=== PATIENT | female | born 1955 | race Caucasian/White ===

== ENCOUNTER → 2016-06-07 | Outpatient (CLI) | payer OTHER ==
[~2016-06-07] VITALS: Ht 171.4 cm; Wt 72.6 kg
[~2016-06-07] MED LIST: BACT800T5 PO; CHLORHEXIDINE GLUCONATE 2 % 1 PACK (2 CLOTHS) TOPICAL PRN; EXCETAB40 PO; INSULIN HUMAN REGULAR 1,000 UNITS/10 ML VIAL SQ PRN; LACTATED RINGER'S 1000 ML IV PRN; METOPROLOL TARTRATE 25 MG TAB PO PRN; MIDAZOLAM HCL 2 MG/2 ML VIAL ONE; POVIDONE IODINE 5% (ANTISEPSIS KIT) 4 APPLICATIONS EACH NARE PRN; PROPOFOL 200 MG/20 ML AMP IV ONE; SODIUM CHLORID 0.9% 500 ML IV PRN
[2016-06-07 08:19] VITALS: BP 142/97; PULSE 76; RESP 20; TEMP 97.4; O2SAT 99
[2016-06-07 12:10] VITALS: BP 142/88; PULSE 75; RESP 20; TEMP 97.6; O2SAT 100
--- NOTE | 2016-06-07 18:51 | EKG ---
Date Performed: 06/07/2016 Time Performed: 08:16:12 PTAGE: 60 years EKG: Sinus rhythm NORMAL ECG Compared to prior tracing no significant change PREVIOUS TRACING : 09/16/2013 10.58 DOCTOR: Morgan Henley Interpretating Date/Time 06/07/2016 18:49:49
--- NOTE | 2016-06-10 11:24 | MR ---
cc: KEVIN RAMIREZ M.D. DATE 06/07/2016 DATE OF 1955 PROCEDURES PERFORMED 1. Upper GI endoscopy. 2. Colonoscopy. INDICATIONS FOR PROCEDURE Evaluation of reflux, epigastric discomfort. Screening colonoscopy. The patient has a prior history of colorectal polyps as well. Photographs were taken. Polypectomy was performed. Biopsies were obtained on upper endoscopy. MONITORING Monitoring was accomplished with pulse oximeter, EKG, blood pressure monitor. PROCEDURE NOTE After informed consent was obtained, the procedure, risks and benefits were explained including the risks of bleeding, sepsis, perforation, risks of anesthesia, risks of missing lesions. The patient was placed in the left lateral position. The video scope was inserted in the esophagus under direct visualization. The esophagus for the most part was unremarkable except for very minimal esophagitis at the EG junction which was biopsied. The stomach was entered. Gastric mucosa was visualized. In the retroflex view the cardia and fundus were unremarkable. The gastric body was unremarkable. The patient did have mild to moderate erosive gastritis in the antrum. Several punctate erosions were noted. Multiple biopsies were taken to rule out H. pylori. The scope was passed through the pyloric ring into the first, second and third portions of the duodenum. The duodenal mucosa was normal. The scope was then gradually withdrawn and the patient was repositioned. Colonoscopy was then performed. The video pediatric colonoscope was inserted in the rectum, passed to the cecum in the usual fashion with abdominal pressure. The colonic mucosa throughout appeared to be grossly normal. The patient did have mild diverticulosis in the descending and sigmoid colon without inflammatory changes. In the ascending colon, a soft sessile polyp 6-mm was successfully snared off and retrieved. Hemostasis was maintained. Cautery was used. In the rectum the scope was retroflexed. Grade 1 internal hemorrhoids were noted. The patient tolerated the procedure well. No immediate complications were noted. IMPRESSION 1. Mild distal esophagitis at the EG junction. 2. Moderate erosive gastritis in the antrum, biopsied. 3. Diverticular disease in the descending and sigmoid colon. 4. One 6-mm polyp snared and removed from the ascending colon successfully. 5. Small internal hemorrhoids. PLAN 1. Recommend antireflux maneuvers. 2. PPI therapy. 3. Follow up biopsies to rule out H pylori. 4. Recommend repeat colonoscopy in five years. 5. Follow up the histopathology of the polyp removed. 6. Recommend high fiber diet. MD SHAMA Webster/CIPRIANO /11:31 AM /11:14 AM
== END ==
LOC: HEND 07:41
PROVIDERS: ATTEND Internal Medicine Gastroenterology
DX: Z12.11 Encounter for screening for malignant neoplasm of colon (principal); Z86.010 Personal history of colon polyps; K63.5 Polyp of colon; K57.30 Diverticulosis of large intestine without perforation or abscess without bleeding; K64.0 First degree hemorrhoids; K29.60 Other gastritis without bleeding; K21.9 Gastro-esophageal reflux disease without esophagitis; R10.13 Epigastric pain; Z01.810 Encounter for preprocedural cardiovascular examination
CPT/HCPCS: 00810; 43239; 45385; 88305; 88312; 93005; J2250

== ENCOUNTER → 2016-09-05 | Outpatient (CLI) | payer OTHER ==
[~2016-09-05] MED LIST changes: -CHLORHEXIDINE GLUCONATE 2 % 1 PACK (2 CLOTHS) TOPICAL PRN; +EXCETAB42 PO; -INSULIN HUMAN REGULAR 1,000 UNITS/10 ML VIAL SQ PRN; -LACTATED RINGER'S 1000 ML IV PRN; -METOPROLOL TARTRATE 25 MG TAB PO PRN; -MIDAZOLAM HCL 2 MG/2 ML VIAL ONE; -POVIDONE IODINE 5% (ANTISEPSIS KIT) 4 APPLICATIONS EACH NARE PRN; -PROPOFOL 200 MG/20 ML AMP IV ONE; -SODIUM CHLORID 0.9% 500 ML IV PRN
[2016-09-05 18:18] LABS: BACTERIA, URINE RARE /hpf; BLOOD, URINE TRACE (NEG); COMMENT (UR) CULT NOT INDICATED; CULTURE IF INDICATED CULT NOT INDICATED; GLUCOSE,URINE NEG (NEG); KETONE, URINE NEG (NEG); MUCUS URINE FEW /lpf (OCC); NITRITE,URINE NEG (NEG); SQUAMOUS EPITHELIAL CELL URINE <1 /hpf (0-5); TRANSITIONAL EPI CELLS, URINE 1 /hpf; URINE COLOR YELLOW (YELLW/STRAW)
== END ==
LOC: PLAB 14:25
PROVIDERS: ATTEND Urology
DX: N39.0 Urinary tract infection, site not specified (principal)
CPT/HCPCS: 81001

== ENCOUNTER 2016-09-15 18:07 | Emergency (ER) | payer OTHER ==
[~2016-09-15] VITALS: Ht 172.7 cm; Wt 80.0 kg
[~2016-09-15 18:07] MED LIST changes: -EXCETAB42 PO
[2016-09-15 18:16] VITALS: BP 163/84; PULSE 88; RESP 18; TEMP 98.4; O2SAT 97
[2016-09-15] MEDS ORDERED: EXCETAB42 PO (18:22)
[2016-09-15] MEDS ORDERED: LIDOCAINE HCL 1% 50 ML VIAL ONE (18:26)
[2016-09-15] MEDS ORDERED: LIDOCAINE 1%/EPINEPHrine 1:100,000 SOLN 20 ML VIAL INFIL ONE (18:30)
[2016-09-15] MEDS ORDERED: TETANUS/DIPHTHERIA TOXOID ADULT 0.5 ML VIAL IM ONE (18:30)
--- NOTE | 2016-09-15 18:51 | PD ---
HPI Chief Complaint: Laceration/Skin Injury Time Seen by Provider: 18:30 Travel History International Travel<30 days: No Contact w/Intl Traveler<30days: No Traveled to known affect area: No History of Present Illness HPI 61-year-old female presents to the emergency room for evaluation of a laceration to her right second, dorsal MCP joint that occurred just prior to arrival. Patient cut herself on a broken glass while trying to wash it. States she wanted to just glue it at home but she could not get the bleeding to stop. Denies significant pain or paresthesias. Last tetanus was greater than 5 years ago. PFSH Past Medical History Cancer: No Cardiovascular Problems: No Diabetes: No Diminished Hearing: No Endocrine: No Glaucoma: No Genitourinary: No Headaches: Yes Hepatitis: No Hiatal Hernia: No Hypertension: No Immune Disorder: No Musculoskeletal: No Neurologic: No Psychiatric: No Respiratory: No Immunizations Current: Yes Thyroid Disease: No ?: Not Menopausal: Yes Past Surgical History AICD: No Section: Yes Gynecologic Surgery: Yes (HYSTERECTOMY) Hysterectomy: Yes Joint Replacement: No Pacemaker: No Other Surgery: Yes (VEIN LIGATION) Social History Alcohol Use: Yes (OCC) Tobacco Use: No Substance Use: No Allergies-Medications (Allergen,Severity, Reaction): Coded Allergies: Kiwi (Verified Allergy, Severe, ANAPHYLACTIC SHOCK, 09/15/16) Reported Meds & Prescriptions Reported Meds & Active Scripts Active Reported Excedrin Tension Headache Cplt (Acetaminophen/Caffeine) 1 Each Tablet 1 Tab PO PRN Review of Systems Except as stated in HPI: all other systems reviewed are Neg Physical Exam Narrative GENERAL: Well-nourished, well-developed female in no acute distress. Afebrile. Ambulatory.. SKIN: Focused skin assessment warm/dry. There is a 1.5 cm superficial, well approximated laceration over the dorsal right second MCP joint. HEAD: Normocephalic. EYES: No scleral icterus. No injection or drainage. NECK: Supple, trachea midline. No JVD or lymphadenopathy. CARDIOVASCULAR: Regular rate and rhythm without murmurs, gallops, or rubs. RESPIRATORY: Breath sounds equal bilaterally. No accessory muscle use. MUSCULOSKELETAL: No cyanosis, or edema. Less than 2 second capillary refill distally. Full range of motion. Data Data Last Documented VS Vital Signs Date Time Temp Pulse Resp B/P Pulse Ox O2 Delivery O2 Flow Rate FiO2 09/15/16 18:16 98.4 88 18 163/84 97 Orders Lidocai-Epi 1%-1:100,000 Inj (Xylocaine- (09/15/16 18:30) Tetanus/Diphtheria Tox Adult (Tetanus/Di (09/15/16 18:30) Lidocaine 1% Inj (50 Ml) (Xylocaine 1% I (09/15/16 18:26) MDM Medical Decision Making Medical Screen Exam Complete: Yes Emergency Medical Condition: Yes Medical Record Reviewed: Yes Differential Diagnosis Laceration, tendon injury, abrasion Narrative Course 61 year-old female presents to the emergency room for evaluation of a laceration to her right dorsal hand over the 2nd MCP joint. Patient cut herself on glass just prior to arrival. Tetanus was update and wound was thoroughly cleaned. There is a1.5 cm superficial laceration that is well- approximated. Minimal bleeding. It was repaired with sutures, see procedure note for details. Patient discharged with wound care instructions and told to follow up with a PCP or return for worsening symptoms. She understands and agrees to plan. Procedures Procedure Narrative LACERATION LOCATION: Right second, dorsal MCP joint LENGTH: 1.5 cm NUMBER OF STITCHES/JUDAH: 3 simple interrupted REPAIR: The area of the laceration was prepped with Betadine and sterilely draped. The laceration was infiltrated with 1% lidocaine with epinephrine. The wound was copiously irrigated and explored without evidence of foreign body , tendon injury or neurovascular injury. The wound was closed using 5-0 Prolene. This was a single layer repair. A sterile dressing was applied. The patient was advised to keep the dressing clean and dry. Patient tolerated the procedure well. Diagnosis Primary Impression: Laceration of hand Qualified Code: S61.411A - Laceration of right hand without foreign body, initial encounter Referrals: Primary Care Physician Patient Instructions: General Instructions, Laceration (ED) Additional Instructions: Keep clean and dry. Apply triple antibiotic ointment daily. Sutures out in 7- 10 days. Follow-up with a primary care physician. Return to the emergency room for worsening symptoms. Disposition: 01 DISCHARGE HOME Condition: Stable Yovana Carrasquillo Sep 15, 2016 18:51
== END 2016-09-15 19:10 | disposition home or self-care (01) ==
LOC: PHEFT 18:07
DX: S61.411A Laceration without foreign body of right hand, initial encounter (principal); W25.XXXA Contact with sharp glass, initial encounter; Z23 Encounter for immunization
CPT/HCPCS: 12001; 90471; 90714

== ENCOUNTER 2017-02-12 03:35 | Inpatient (IN) | payer OTHER ==
[2017-02-12] VITALS (15 sets, daily range): BP systolic 88–160; BP diastolic 54–94; PULSE 8–112; RESP 12–24; TEMP 96.2–98.6; O2SAT 96–100
[~2017-02-12] VITALS: Ht 172.7 cm; Wt 80.7 kg
[~2017-02-12 03:35] MED LIST changes: -BACT800T5 PO; -EXCETAB40 PO; +EXCETAB42 PO; +IBUP200C PO
[2017-02-12] MEDS ORDERED: PRED5TAB PO (04:00)
[2017-02-12] MEDS ORDERED: ASPI1TAB93 PO (04:00)
[2017-02-12] MEDS ORDERED: LORazepam 1 MG TAB PO ONE (04:15)
[2017-02-12 04:47] LABS: AUTOMATED NEUTROPHIL # 5.3 TH/MM3 (1.8-7.7); BASOPHIL # 0.2 TH/MM3 (0-0.2); BASOPHIL % 2.1 % (0.0-2.0); EOSINOPHIL % 0.3 % (0.0-4.0); HEMATOCRIT 37.5 % (35.0-46.0); HEMOGLOBIN 12.4 GM/DL (11.6-15.3); LYMPH % 18.1 % (9.0-44.0); LYMPHOCYTE # 1.3 TH/MM3 (1.0-4.8); MEAN CELL VOLUME 84.2 FL (80.0-100.0); MEAN CORPUSCULAR HEMOGLOBIN 27.8 PG (27.0-34.0); MEAN PLATELET VOLUME 9.7 FL (7.0-11.0); MONO % 5.4 % (0.0-8.0); MONOCYTE # 0.4 TH/MM3 (0-0.9); NEUT % 74.1 % (16.0-70.0); PLATELET COUNT 204 TH/MM3 (150-450); RED BLOOD COUNT 4.45 MIL/MM3 (4.00-5.30); WHITE BLOOD COUNT 7.2 TH/MM3 (4.0-11.0)
[2017-02-12 04:52] LABS: CHLORIDE 105 MEQ/L (98-107); SODIUM (NA) 140 MEQ/L (136-145)
[2017-02-12 04:55] LABS: CALCIUM 8.6 MG/DL (8.5-10.1)
[2017-02-12 04:56] LABS: ALBUMIN 3.7 GM/DL (3.4-5.0); BICARBONATE 29.1 MEQ/L (21.0-32.0); BLOOD UREA NITROGEN 28 MG/DL (7-18); GLUCOSE,RANDOM 125 MG/DL (74-106); PROTHROMBIN TIME - PATIENT 9.9 SEC (9.8-11.6)
[2017-02-12 04:59] LABS: ALT (GPT) 20 U/L (10-53); AST (GOT) 12 U/L (15-37); GLOMERULAR FILTRATION RATE 73 ML/MIN (>89)
[2017-02-12 05:00] LABS: TOTAL BILIRUBIN ADULT 0.3 MG/DL (0.2-1.0); TOTAL PROTEIN 6.9 GM/DL (6.4-8.2)
[2017-02-12 05:02] LABS: ALKALINE PHOSPHATASE 84 U/L (45-117)
[2017-02-12] MEDS ORDERED: SODIUM CHLOR 0.9% 1000 ML INJ 1,000 ML IV ONE ×3 (05:15→14:00)
--- NOTE | 2017-02-12 05:23 | PD ---
HPI Chief Complaint: GI Complaint Time Seen by Provider: 03:49 Travel History International Travel<30 days: No Contact w/Intl Traveler<30days: No Traveled to known affect area: No History of Present Illness HPI This is a 61-year-old female who presents to the emergency Department with onset of bloody diarrhea that started at 11 PM. She said she woke up in the bed was soaked and bright red blood. Since then she's been on the toilet constantly and all this been coming out is bright red bloody stool and clots. She denies any fevers or chills and denies any abdominal pain. Her symptoms of been constant, moderate severity with no associated pain in her rectum. She says for to days ago she made an oyster corn casserole that she was in the only one that ate it. She had an endoscopy and colonoscopy in February which was normal with Dr. Kamara. She has recently been on prednisone for a shoulder injury, but denies any recent antibiotic use. PFSH Past Medical History Cancer: No Cardiovascular Problems: No Diabetes: No Diminished Hearing: No Endocrine: No Glaucoma: No Genitourinary: No Headaches: Yes Hepatitis: No Hiatal Hernia: No Hypertension: No Immune Disorder: No Musculoskeletal: No Neurologic: No Psychiatric: No Respiratory: No Immunizations Current: Yes Thyroid Disease: No Menopausal: Yes Past Surgical History AICD: No Section: Yes Gynecologic Surgery: Yes (HYSTERECTOMY) Hysterectomy: Yes Joint Replacement: No Pacemaker: No Other Surgery: Yes (VEIN LIGATION) Social History Alcohol Use: No Tobacco Use: No Substance Use: No Allergies-Medications (Allergen,Severity, Reaction): Coded Allergies: kiwi (Unverified Allergy, Severe, ANAPHYLACTIC SHOCK, 02/12/17) Reported Meds & Prescriptions Reported Meds & Active Scripts Active Reported Excedrin Extra Strength (Bunshrh-Gbpxifufafhkx-Xoiwtwyj) 250 Mg-250 Mg-65 Mg Tab Mg PO Prednisone 5 Mg Tab 4 Mg PO DAILY Ibuprofen 200 Mg Cap 400 Mg PO Q6H PRN Review of Systems Except as stated in HPI: all other systems reviewed are Neg Physical Exam Narrative GENERAL:Well appearing, no acute distress SKIN: Focused skin assessment warm and dry. HEAD: Atraumatic. Normocephalic. EYES: Pupils equal and round. No injection or drainage. ENT: Moist mucous membranes NECK: Trachea midline. CARDIOVASCULAR: Regular rate and rhythm. No murmur appreciated. RESPIRATORY: Clear to auscultation. Breath sounds equal bilaterally. GASTROINTESTINAL: Abdomen soft, non-tender, nondistended. No external hemorrhoids or anal fissure. MUSCULOSKELETAL: No obvious deformities. NEUROLOGICAL: Awake and alert. No obvious cranial nerve deficits. Moving all extremities. PSYCHIATRIC: Appropriate mood and affect; insight and judgment normal. Data Data Last Documented VS Vital Signs Date Time Temp Pulse Resp B/P (MAP) Pulse Ox O2 Delivery O2 Flow Rate FiO2 02/12/17 04:48 20 02/12/17 03:41 97.6 112 160/94 (116) 97 Orders Orders Lorazepam (Ativan) (02/12/17 04:15) Complete Blood Count With Diff (02/12/17 04:14) Comprehensive Metabolic Panel (02/12/17 04:14) Prothrombin Time / Inr (Pt) (02/12/17 04:14) Act Partial Throm Time (Ptt) (02/12/17 04:14) Sodium Chlor 0.9% 1000 Ml Inj (Ns 1000 M (02/12/17 05:15) Type And Screen (02/12/17 05:18) Ciprofloxacin 400 Mg Premix (Cipro 400 M (02/12/17 05:30) Metronidazole 500 Mg Inj (Flagyl 500 Mg (02/12/17 05:30) C Diff Toxin Pcr (02/12/17 05:18) Pantoprazole Inj (Protonix Inj) (02/12/17 05:30) Labs Laboratory Tests Test 02/12/17 04:35 White Blood Count 7.2 TH/MM3 Red Blood Count 4.45 MIL/MM3 Hemoglobin 12.4 GM/DL Hematocrit 37.5 % Mean Corpuscular Volume 84.2 FL Mean Corpuscular Hemoglobin 27.8 PG Mean Corpuscular Hemoglobin Concent 33.0 % Red Cell Distribution Width 13.0 % Platelet Count 204 TH/MM3 Mean Platelet Volume 9.7 FL Neutrophils (%) (Auto) 74.1 % Lymphocytes (%) (Auto) 18.1 % Monocytes (%) (Auto) 5.4 % Eosinophils (%) (Auto) 0.3 % Basophils (%) (Auto) 2.1 % Neutrophils # (Auto) 5.3 TH/MM3 Lymphocytes # (Auto) 1.3 TH/MM3 Monocytes # (Auto) 0.4 TH/MM3 Eosinophils # (Auto) 0.0 TH/MM3 Basophils # (Auto) 0.2 TH/MM3 CBC Comment DIFF FINAL Differential Comment Prothrombin Time 9.9 SEC Prothromb Time International Ratio 1.0 RATIO Activated Partial Thromboplast Time 24.4 SEC Blood Urea Nitrogen 28 MG/DL Creatinine 0.80 MG/DL Random Glucose 125 MG/DL Total Protein 6.9 GM/DL Albumin 3.7 GM/DL Calcium Level 8.6 MG/DL Alkaline Phosphatase 84 U/L Aspartate Amino Transf (AST/SGOT) 12 U/L Alanine Aminotransferase (ALT/SGPT) 20 U/L Total Bilirubin 0.3 MG/DL Sodium Level 140 MEQ/L Potassium Level 4.1 MEQ/L Chloride Level 105 MEQ/L Carbon Dioxide Level 29.1 MEQ/L Anion Gap 6 MEQ/L Estimat Glomerular Filtration Rate 73 ML/MIN MDM Medical Decision Making Medical Screen Exam Complete: Yes Emergency Medical Condition: Yes Interpretation(s) Afebrile, tachycardic, hypertensive No leukocytosis BUN is slightly elevated Differential Diagnosis Colitis, anemia, polyp, AVM, ulcer Narrative Course This is a 61-year-old female who presents to the emergency department with bloody diarrhea that's been going on since 11 PM. She is tachycardic on arrival. An IV was established and she is placed on a monitor. Labs are reassuring except for a slightly elevated BUN. External rectal exam is normal. I suspect patient has an acute colitis although she has no abdominal pain, fever or leukocytosis. She had a large 250 cc bowel movement that was all blood here in the emergency department. Given her tachycardia and persistent symptoms I think it's reasonable to observe her and have GI see her. She'll be placed on Protonix as well as ciprofloxacin and Flagyl for possible colitis. Diagnosis Primary Impression: Bloody diarrhea Admitting Information Admitting Physician Requests: Observation Laurel Dunne MD Feb 12, 2017 05:23
[2017-02-12] MEDS ORDERED: PANTOPRAZOLE SODIUM 40 MG VIAL IV PUSH ONE (05:30)
[2017-02-12] MEDS ORDERED: CIPROFLOXACIN 400 MG PREMIX 200 ML IV ONE (05:30)
[2017-02-12] MEDS ORDERED: metroNIDAZOLE 500 MG INJ 100 ML IV ONE (05:30)
[2017-02-12] MEDS ORDERED: ONDANSETRON HCL 4 MG/2 ML VIAL IV PUSH PRN (06:00)
[2017-02-12] MEDS ORDERED: SODIUM CHLORIDE 0.9% FLUSH 10 ML FLUSH IV FLUSH PRN (06:00)
[2017-02-12] MEDS: SODIUM CHLOR 0.9% 1000 ML INJ 1,000 ML IV SCH ×2 (06:25→15:51)
[2017-02-12] MEDS: SODIUM CHLORIDE 0.9% FLUSH 10 ML FLUSH IV FLUSH SCH ×2 (08:39→20:53)
[2017-02-12] MEDS ORDERED: PANTOPRAZOLE SODIUM 40 MG VIAL IV PUSH SCH (09:00)
[2017-02-12 11:00] LABS: HEMATOCRIT 29.9 % (35.0-46.0); HEMOGLOBIN 9.8 GM/DL (11.6-15.3)
--- NOTE | 2017-02-12 11:43 | PD.CONS ---
GI Consult GI Consult Thank you for the consultation Received call from nurse. Pt having change of status. pt is having large amount of active bleeding. Pt is being transferred to ICU. Labs, imaging and ER note reviewed. No CT done in er. After discussion with nurse. Advised. 1. type and cross 4 units and transfuse 2 stat 2. With this much active bleeding - tagged RBC scan not helpful, and undergoing stat colonoscopy with out bowel prep not useful. 3. STAT IR consult for possible angiography and embol. 4. Transfer to ICU. 5. agree with stabilize medically. 6. further recs to follow. It was a pleasure seeing Arti Londono . Thank you for this consult. Entered by: Tamika Hodges MD Feb 12, 2017 11:43
--- NOTE | 2017-02-12 12:31 | HHI.HP ---
[facility] Service [facility] Primary Care Physician Massimo Morley MD Admission Diagnosis Bloody diarrhea Diagnoses: (1) GI (gastrointestinal bleed) Diagnosis: Principal Chief Complaint: Severe GI bleeding Travel History International Travel<30 Days: No Contact w/Intl Traveler <30 Da: No Traveled to Known Affected Are: No History of Present Illness Written by Sneha De Anda, acting as scribe for Dr. Zazueta on 02/12/17 at 12:13. Ms. Londono is a pleasant 61-year-old female patient with a known medical history of chronic tension headaches who presented to the ED with bloody diarrhea. Patient states that she was in her normal state of health, feeling overall well and went to sleep last evening and shortly after around 2300 she awoke lying in a puddle of blood-soaked sheets. Does admit to waking up with generalized weakness, lightheadedness, nausea and dyspnea on exertion. She states she had a few bouts of diarrhea a couple days ago but did not notice any presence of blood. She denies any recent illness including fever, chills, headache, shortness of breath, fatigue, abdominal pain, nausea, vomiting, or dysuria. Since this morning patient states she has been having bloody diarrhea every 20 minutes with worsening symptoms of fatigue, lightheadedness, and diaphoresis with increased movement and activity. Patient does state she has chronic tension headaches for which she takes Excedrin once per day for years now. Patient did undergo a routine EGD and colonoscopy with Dr. Asad carolina in April which was reportedly unremarkable. It should be noted that patient was being treated for shoulder pain with a prednisone taper and is currently on her 4th day of the taper. Denies any recent antibiotic use. Review of Systems Constitutional: COMPLAINS OF: Diaphoretic episodes, Fatigue, DENIES: Fever, Chills Eyes: COMPLAINS OF: Blurred vision, DENIES: Diplopia, Vision loss Respiratory: DENIES: Cough, Shortness of breath Cardiovascular: COMPLAINS OF: Dyspnea on Exertion, DENIES: Chest pain, Palpitations Gastrointestinal: COMPLAINS OF: Bloody stools, Diarrhea, Nausea, DENIES: Abdominal pain, Constipation, Vomiting Psychiatric: COMPLAINS OF: Anxiety Except as stated in HPI: all other systems reviewed are Neg Past Family Social History Past Medical History Chronic tension headaches Past Surgical History Hysterectomy Vein ligations Reported Medications Active Reported Excedrin Extra Strength (Bexsoyt-Iojcncndswzkr-Iestwitk) 250 Mg-250 Mg-65 Mg Tab Mg PO Prednisone 5 Mg Tab 4 Mg PO DAILY Ibuprofen 200 Mg Cap 400 Mg PO Q6H PRN Allergies: Coded Allergies: kiwi (Unverified Allergy, Severe, ANAPHYLACTIC SHOCK, 02/12/17) Active Ordered Medications Current Medications Medications (Trade) Dose Ordered Sig/Katja Route Start Time Stop Time Status Last Admin Sodium Chloride 1,000 ml @ 100 mls/hr Q10H IV 02/12/17 05:51 02/12/17 06:25 (NS Flush) 2 ml UNSCH PRN IV FLUSH 02/12/17 06:00 (NS Flush) 2 ml BID IV FLUSH 02/12/17 09:00 (Zofran Inj) 4 mg Q6H PRN IV PUSH 02/12/17 06:00 02/12/17 07:09 Ciprofloxacin/ Dextrose 200 ml @ 200 mls/hr Q12H IV 02/12/17 18:00 Metronidazole 100 ml @ 100 mls/hr Q8H IV 02/12/17 14:00 Sodium Chloride 1,000 ml @ 999 mls/hr BOLUS ONCE IV 02/12/17 11:30 02/12/17 12:30 02/12/17 11:30 Pantoprazole Sodium 80 mg/ Sodium Chloride 100 ml @ 10 mls/hr Q10H IV 02/12/17 13:00 Family History Father had a history of sinus cancer. Sister has a significant medical history of breast CA and Lupus. Mother has myasthenia gravis and dementia. Social History Denies any current tobacco use, denies any alcohol use, denies any illicit drug use. Physical Exam Vital Signs Vital Signs Date Time Temp Pulse Resp B/P (MAP) Pulse Ox O2 Delivery O2 Flow Rate FiO2 02/12/17 08:00 96.2 80 20 120/72 (88) 100 02/12/17 06:56 78 18 98 Nasal Cannula 2.00 02/12/17 06:55 78 18 122/76 (91) 98 02/12/17 06:01 80 18 116/67 (83) 98 Nasal Cannula 2.00 02/12/17 04:48 20 02/12/17 03:41 97.6 112 16 160/94 (116) 97 Physical Exam GENERAL: This is a well-nourished, well-developed patient, in no apparent distress. SKIN: No rashes, ecchymoses or lesions. Cool and clammy. Pale. HEAD: Atraumatic. Normocephalic. EYES: Pupils equal round and reactive. Extraocular motions intact. No scleral icterus. No injection or drainage. ENT: Nose without bleeding, purulent drainage or septal hematoma. Throat without erythema, tonsillar hypertrophy or exudate. Uvula midline. Airway patent. NECK: Trachea midline. No JVD. Supple. CARDIOVASCULAR: Regular rate and rhythm without murmurs, gallops, or rubs. RESPIRATORY: Clear to auscultation. Breath sounds equal bilaterally. No wheezes , rales, or rhonchi. GASTROINTESTINAL: Abdomen soft, non-tender, nondistended. No guarding. Active BS x 4. Active GI bleeding. MUSCULOSKELETAL: Extremities without clubbing, cyanosis, or edema. No joint tenderness, effusion, or edema noted. NEUROLOGICAL: Awake and alert. Cranial nerves II through XII intact. Motor and sensory grossly within normal limits. Five out of 5 muscle strength in all muscle groups. Normal speech. Laboratory Laboratory Tests Test 02/12/17 04:35 02/12/17 05:15 02/12/17 10:40 White Blood Count 7.2 Red Blood Count 4.45 Hemoglobin 12.4 9.8 Hematocrit 37.5 29.9 Mean Corpuscular Volume 84.2 Mean Corpuscular Hemoglobin 27.8 Mean Corpuscular Hemoglobin Concent 33.0 Red Cell Distribution Width 13.0 Platelet Count 204 Mean Platelet Volume 9.7 Neutrophils (%) (Auto) 74.1 Lymphocytes (%) (Auto) 18.1 Monocytes (%) (Auto) 5.4 Eosinophils (%) (Auto) 0.3 Basophils (%) (Auto) 2.1 Neutrophils # (Auto) 5.3 Lymphocytes # (Auto) 1.3 Monocytes # (Auto) 0.4 Eosinophils # (Auto) 0.0 Basophils # (Auto) 0.2 CBC Comment DIFF FINAL Differential Comment Prothrombin Time 9.9 Prothromb Time International Ratio 1.0 Activated Partial Thromboplast Time 24.4 Blood Urea Nitrogen 28 Creatinine 0.80 Random Glucose 125 Total Protein 6.9 Albumin 3.7 Calcium Level 8.6 Alkaline Phosphatase 84 Aspartate Amino Transf (AST/SGOT) 12 Alanine Aminotransferase (ALT/SGPT) 20 Total Bilirubin 0.3 Sodium Level 140 Potassium Level 4.1 Chloride Level 105 Carbon Dioxide Level 29.1 Anion Gap 6 Estimat Glomerular Filtration Rate 73 Stool C. difficile Toxin (PCR) NEGATIVE Stl C. difficile Toxin Epiderm 027 PRESUMPTIVE NEGATIVE Result Diagram: 02/12/17 1040 02/12/17 0435 Septic Shock Reassessment Septic shock perfusion: reassessment completed Caprini VTE Risk Assessment Caprini VTE Risk Assessment: No/Low Risk (score <= 1) Caprini Risk Assessment Model Point Value = 1 Point Value = 2 Point Value = 3 Point Value = 5 Age 41-60 Minor surgery BMI > 25 kg/m2 Swollen legs Varicose veins or History of unexplained or recurrent spontaneous Oral contraceptives or hormone replacement Sepsis (< 1 month) Serious lung disease, including pneumonia (< 1 month) Abnormal pulmonary function Acute myocardial infarction Congestive heart failure (< 1 month) History of inflammatory bowel disease Medical patient at bed rest Age 61-74 Arthroscopic surgery Major open surgery (> 45 min) Laparoscopic surgery (> 45 min) Malignancy Confined to bed (> 72 hours) Immobilizing plaster cast Central venous access Age >= 75 History of VTE Family history of VTE Factor V Leiden Prothrombin [id number] Lupus anticoagulant Anticardiolipin antibodies Elevated serum homocysteine Heparin-induced thrombocytopenia Other congenital or acquired thrombophilia Stroke (< 1 month) Elective arthroplasty Hip, pelvis, or leg fracture Acute spinal cord injury (< 1 month) Prophylaxis Regimen Total Risk Factor Score Risk Level Prophylaxis Regimen 0-1 Low Early ambulation 2 Moderate Order ONE of the following: *Sequential Compression Device (SCD) *Heparin 5000 units SQ BID 3-4 Higher Order ONE of the following medications: *Heparin 5000 units SQ TID *Enoxaparin/Lovenox 40 mg SQ daily (WT < 150 kg, CrCl > 30 mL/min) *Enoxaparin/Lovenox 30 mg SQ daily (WT < 150 kg, CrCl > 10-29 mL/min) *Enoxaparin/Lovenox 30 mg SQ BID (WT < 150 kg, CrCl > 30 mL/min) AND/OR *Sequential Compression Device (SCD) 5 or more Highest Order ONE of the following medications: *Heparin 5000 units SQ TID (Preferred with Epidurals) *Enoxaparin/Lovenox 40 mg SQ daily (WT < 150 kg, CrCl > 30 mL/min) *Enoxaparin/Lovenox 30 mg SQ daily (WT < 150 kg, CrCl > 10-29 mL/min) *Enoxaparin/Lovenox 30 mg SQ BID (WT < 150 kg, CrCl > 30 mL/min) AND *Sequential Compression Device (SCD) Assessment and Plan Problem List: (1) GI (gastrointestinal bleed) ICD Code: K92.2 - Gastrointestinal hemorrhage, unspecified Plan: Patient has been admitted and transferred to the ICU for closer monitoring. Patients symptoms have been worsening since her presentation to the ED, hemoglobin on presentation was 12.4 and last blood draw was 9.8 which is most likely unreliable due to large amount of active bleeding. She continues to have bouts of bloody diarrhea at minimum every hour and is symptomatic with lightheadedness, dizziness, blurry vision, fatigue and diaphoresis. Status post 2 L NS bolus has been ordered for hypotension. Ensure hydration, NS @ 100ml/hr. GI has been consulted and called to update on patient status, appreciate further input and recommendations. Type and screen has been ordered for 4 units PRBC with orders to give 2 units STAT. Serial H & H's have been ordered. Follow. STAT IR consult has been placed by GI for possible angiography and embolization. Appreciate consultation. Protonix drip has been started. Cipro IV and Flagyl IV was started overnight, will continue although unlikely colitis with no abdominal pain, leukocytosis or fevers. Will continue to watch patient closely. Continue cardiac telemetry. Vitals are stable at this time. DVT Prophylaxis: SCDs. Assessment and Plan This note was transcribed by BRIANNA Gilbert. I, Dr. Prema Zazueta personally performed the history, physical exam, and medical decision making; and confirmed the accuracy of the information in the transcribed note. Authenticated by Dr. Prema Zazueta on 02/12/17 at 12:13. Physician Certification 2 Midnight Certification Type: Admission for Inpatient Services Order for Inpatient Services The services are ordered in accordance with Medicare regulations or non- Medicare payer requirements, as applicable. In the case of services not specified as inpatient-only, they are appropriately provided as inpatient services in accordance with the 2-midnight benchmark. Estimated LOS (days): 3 3 days is the estimated time the patient will need to remain in the hospital, assuming treatment plan goals are met and no additional complications. Post-Hospital Plan: Home Problem Qualifiers (1) GI (gastrointestinal bleed): Qualified Codes: K92.2 - Gastrointestinal hemorrhage, unspecified Sneha De Anda Feb 12, 2017 12:31 Prema Zazueta MD Feb 12, 2017 19:42
[2017-02-12] MEDS: PANTOPRAZOLE INJ 80 MG in SODIUM CHLORIDE 0.9% INJ 100 ML IV SCH ×3 (13:00→21:12)
[2017-02-12] MEDS ORDERED: metroNIDAZOLE 500 MG INJ 100 ML IV SCH (14:00)
--- NOTE | 2017-02-12 18:57 | RADRPT ---
EXAM DATE/TIME: 02/12/2017 16:00 [place] COMPARISON: No previous studies available for comparison. INDICATIONS : Hemmorrhage. Blood in stool. DOSE: 21 mCi Tc99m Ultratag labeled red blood cells IV IMAGIN hrs MEDICAL HISTORY : None SURGICAL HISTORY : Hysterectomy. section. ENCOUNTER: Initial ACUITY: 1 day PAIN SCALE: 1/10 LOCATION: Abdomen. TECHNIQUE: Following the modified in vitro labeling of autologous red cells, dynamic continuous images were acqu ired for the specified interval. FINDINGS: BIODISTRIBUTION: There is a very good labeling of red cells without significant uptake in the gastric wall. There is good delineation of the blood pool of the spleen and abdominal vessels. BLEEDING: No episodes of active GI bleeding are observed during specified interval of continuous observation. CONCLUSION: 1. No evidence for active GI bleed at this time. Jer Harris MD on February 12, 2017 at 18:54 Board Certified Radiologist. This report was verified electronically.
[2017-02-12] MEDS: metroNIDAZOLE 500 MG INJ 100 ML IV SCH (18:58)
[2017-02-12] MEDS: ACETAMINOPHEN 325 MG TAB PO PRN (19:40)
[2017-02-12 19:43] LABS: HEMATOCRIT 30.9 % (35.0-46.0); HEMOGLOBIN 10.3 GM/DL (11.6-15.3)
[2017-02-12] MEDS: CIPROFLOXACIN 400 MG PREMIX 200 ML IV SCH (21:12)
[2017-02-12] MEDS ORDERED: CHLORHEXIDINE GLUCONATE 2 % 1 PACK (2 CLOTHS)(extra cloths) TOPICAL PRN (21:30)
[2017-02-13] VITALS (12 sets, daily range): BP systolic 113–150; BP diastolic 63–95; PULSE 69–109; RESP 18–45; TEMP 98–98.8; O2SAT 95–99
[2017-02-13] MEDS: CHLORHEXIDINE GLUCONATE 2 % 1 PACK (2 CLOTHS)(taper/protocol) TOPICAL SCH (00:41)
[2017-02-13] MEDS: ACETAMINOPHEN 325 MG TAB PO PRN ×2 (01:18→17:25)
[2017-02-13] MEDS: metroNIDAZOLE 500 MG INJ 100 ML IV SCH ×2 (01:19→10:00)
[2017-02-13] MEDS: SODIUM CHLOR 0.9% 1000 ML INJ 1,000 ML IV SCH ×4 (01:26→23:00)
[2017-02-13 02:01] LABS: AUTOMATED NEUTROPHIL # 3.2 TH/MM3 (1.8-7.7); BASOPHIL # 0.1 TH/MM3 (0-0.2); BASOPHIL % 1.1 % (0.0-2.0); EOSINOPHIL # 0.1 TH/MM3 (0-0.4); EOSINOPHIL % 2.6 % (0.0-4.0); HEMATOCRIT 27.7 % (35.0-46.0); HEMOGLOBIN 9.4 GM/DL (11.6-15.3); LYMPH % 28.8 % (9.0-44.0); LYMPHOCYTE # 1.5 TH/MM3 (1.0-4.8); MEAN CELL VOLUME 86.1 FL (80.0-100.0); MEAN CORPUSCULAR HEMOGLOBIN 29.3 PG (27.0-34.0); MEAN PLATELET VOLUME 9.7 FL (7.0-11.0); MONO % 7.2 % (0.0-8.0); MONOCYTE # 0.4 TH/MM3 (0-0.9); NEUT % 60.3 % (16.0-70.0); PLATELET COUNT 149 TH/MM3 (150-450); RED BLOOD COUNT 3.22 MIL/MM3 (4.00-5.30); RED CELL DISTRIBUTION WIDTH 13.8 % (11.6-17.2); WHITE BLOOD COUNT 5.3 TH/MM3 (4.0-11.0)
[2017-02-13 02:17] LABS: BICARBONATE 26.9 MEQ/L (21.0-32.0); CALCIUM 7.3 MG/DL (8.5-10.1); CREATININE 0.56 MG/DL (0.50-1.00)
[2017-02-13 02:31] LABS: CALCIUM-PROTEIN CORRECTED 8.5 MG/DL (8.5-10.1)
[2017-02-13] MEDS: CIPROFLOXACIN 400 MG PREMIX 200 ML IV SCH (05:29)
[2017-02-13] MEDS: PANTOPRAZOLE INJ 80 MG in SODIUM CHLORIDE 0.9% INJ 100 ML IV SCH (07:39)
[2017-02-13 08:18] LABS: HEMATOCRIT 29.4 % (35.0-46.0); HEMOGLOBIN 9.6 GM/DL (11.6-15.3)
[2017-02-13] MEDS: SODIUM CHLORIDE 0.9% FLUSH 10 ML FLUSH IV FLUSH SCH ×2 (08:52→19:40)
--- NOTE | 2017-02-13 09:03 | HHI.PR ---
Subjective Remarks Follow-up acute GI bleed/severe anemia 02/13/17-patient seen and examined, denies any current GI bleed she status post angiography without embolization. She was transfused PRBC yesterday. H&H stable today. Patient reports daily use of Excedrin. Patient currently nothing by mouth and would like to have her diet advanced Objective Vitals Vital Signs Date Time Temp Pulse Resp B/P (MAP) Pulse Ox O2 Delivery O2 Flow Rate FiO2 02/13/17 06:00 84 02/13/17 04:00 69 02/13/17 04:00 98.1 69 19 113/69 (84) 95 02/13/17 02:00 73 02/13/17 00:00 98.0 84 18 113/63 (80) 97 02/13/17 00:00 84 02/12/17 22:00 104 02/12/17 20:00 96 02/12/17 20:00 98.0 96 18 125/63 (83) 97 02/12/17 16:52 98.5 84 13 124/67 99 02/12/17 16:37 98.3 87 24 129/70 98 02/12/17 16:22 98.6 85 22 129/65 98 02/12/17 16:07 98.5 79 20 125/65 96 02/12/17 16:00 98.5 8 22 129/65 (86) 98 02/12/17 14:00 86 12 114/70 (85) 98 02/12/17 13:00 97 20 124/71 (88) 02/12/17 12:00 97.8 80 14 114/70 (85) 99 02/12/17 11:30 75 20 88/54 (65) 97 I/O 02/12/17 02/12/17 02/12/17 02/13/17 02/13/17 02/13/17 07:00 15:00 23:00 07:00 15:00 23:00 Intake Total 1300 ml 2000 ml 550 ml 1300 ml Output Total 350 ml 800 ml 1800 ml Balance 950 ml 2000 ml -250 ml -500 ml Intake IV Total 1300 ml 2000 ml 100 ml 1300 ml Packed Cells 400 ml Blood Product IV Normal Saline Flush 50 ml Output Urine Total 800 ml 1800 ml Stool Total 350 ml # Bowel Movements 1 Result Diagram: 02/13/17 06 02/13/17 0115 Imaging Last Impressions GI Bleed Scan Nuclear Medicine 02/12/17 5148 Signed Impressions: Service Date/Time: Sunday, February 12, 2017 16:00 - CONCLUSION: 1. No evidence for active GI bleed at this time. Jer Harris MD Objective Remarks GENERAL: NAD SKIN: Warm and dry. HEAD: Normocephalic. EYES: No scleral icterus. No injection or drainage. NECK: Supple, trachea midline. No JVD or lymphadenopathy. CARDIOVASCULAR: Regular rate and rhythm without murmurs, gallops, or rubs. RESPIRATORY: Breath sounds equal bilaterally. No accessory muscle use. GASTROINTESTINAL: Abdomen soft, non-tender, nondistended. MUSCULOSKELETAL: No cyanosis, or edema. BACK: Nontender without obvious deformity. No CVA tenderness. A/P Problem List: (1) GI (gastrointestinal bleed) ICD Code: K92.2 - Gastrointestinal hemorrhage, unspecified (2) Symptomatic anemia ICD Code: D64.9 - Anemia, unspecified Assessment and Plan 61 year-old female with Acute GI bleed Symptomatic anemia Status post angiography without embolization 02/12/17, with no evidence of active GI bleed Transfused PRBC H&H currently stable 9.6/29.4 and transfuse accordingly Currently on PPI drip pending any further recommendation from gastroenterology Patient was advised to avoid NSAIDs History of diverticular disease Currently on IV Cipro and Flagyl, will discontinue antibiotics Hypokalemia Replace electrolyte and monitor DVT prophylaxis: Chemical anti-prophylaxis is contraindicated, bilateral SCDs GI prophylaxis: PPI Total critical care time spent in the care of the patient over 50 minutes Problem Qualifiers (1) GI (gastrointestinal bleed): Qualified Codes: K92.2 - Gastrointestinal hemorrhage, unspecified Rico Gould MD Feb 13, 2017 09:03
--- NOTE | 2017-02-13 10:55 | PD.CONS ---
GI Consult GI Consult Thank you for the consultation, Full consult dictated. ASSESSMENT/PLAN: 1. Rectal bleeding likely due to diverticular - no new bleeding since yesterday s/p Tagged Rbc scan negative. 2. Acute blood loss anemia. s/p 1 uPRBC, hb stable. PLAN: 1. Stop protonix drip, d/c iv abx. 2. advance diet as tolerated 3. Pt had EGd/Colon in 05/2016 - no urgent need for rpt colon at this time 4. Pt advised on starting Iron sulfate po 1 tab daily x1 mo 5. Out pt follow up with Dr Kamara in 2-3 wks. 6. No objection to discharge from GI stand point. 7. Pt advised to return to ED if Bleeding reoccurs. It was a pleasure seeing Arti Londono . Thank you for this consult. Entered by: Tamika Hodges MD Feb 13, 2017 10:55
[2017-02-13] MEDS ORDERED: POTASSIUM CHLORIDE 10 MEQ CONTROLLED RELEASE TAB PO ONE (11:00)
--- NOTE | 2017-02-13 11:33 | MB ---
cc: SHAWN VALLES DATE OF CONSULTATION 02/13/2017 DATE OF 1955 ENDOSCOPIST Shawn Valles MD SERVICE GI PRIMARY DOUBLE END [facility] OPERATOR Dr. 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 She came into the emergency room in [place] complaining of having hematochezia, bloody diarrhea in the evening around 11:00 p.m. She noticed completely painless bleeding, blood soaked sheets. Due to the weakness, lightheadedness and dyspnea on exertion, she came into the emergency room. She denies any abdominal pain. No nausea or vomiting. No fevers or chills. Denies any bloody diarrhea prior to this episode. In the emergency room, she had a work up and was noted to be mildly anemic. While on the floor, she began having another bout of hematochezia with significant weakness and diaphoresis and therefore she was transferred to the intensive care unit. GI was consulted for further workup and management. Due to the active GI bleeding, she typed and crossed and transfused one unit of packed RBCs empirically and interventional radiology was consulted. I discuss with interventional radiology on treatment options choices, IR for angiography with embolization versus a tagged bleeding scan. Due to the severity of her symptoms, she was transferred to [facility] and underwent a tagged bleeding scan at the recommendation of the radiologist. The tagged bleeding scan was negative and the patient has not had any episodes of rectal bleeding since yesterday morning. The patient has undergone EGD and colonoscopy in [place] [address] Kamara. EGD was significant for mild gastritis and no H. pylori, colonoscopy was significant for diverticular disease in the descending and sigmoid colon. She does take daily Excedrin for chronic tension headaches and has done so for 20 years. PAST MEDICAL HISTORY Chronic tension headaches PAST SURGICAL HISTORY 1. 2. Hysterectomy ALLERGIES KIWI, no known drug allergies. MEDICATIONS 1. Excedrin 2. Prednisone 3. Ibuprofen FAMILY HISTORY No GI malignancies. Sister had a history of breast cancer and mother has a history of Myasthenia gravis. SOCIAL HISTORY Denies alcohol, tobacco, or illicit drug use. The patient is a nurse at [employer] REVIEW OF SYSTEMS A 12-point review of systems was obtained by me and was negative and noncontributory. PHYSICAL EXAMINATION VITAL SIGNS: Temperature 98.0. Temperature 84 F, heart rate 69, blood pressure 113/69, 95% on room air. GENERAL: Alert and oriented. HEAD, EYES, EARS, NOSE, AND THROAT: Oral mucosa is moist and pink. Atraumatic and normocephalic. Pupils equal, round, reactive to light. NECK: Supple, nontender. No carotid bruits. No JVD noted. No thyromegaly. CARDIOVASCULAR: Regular rate rhythm. No murmurs heard. RESPIRATORY: Clear to auscultation bilaterally. No wheezing. ABDOMEN: Soft, nontender, nondistended. Bowel sounds present in all four quadrants. No hepatomegaly noted. GENITOURINARY: No CVA tenderness noted. MUSCULOSKELETAL: Equal strength upper and lower extremities. NEUROLOGIC: Alert and oriented. No focal deficits. PSYCHIATRIC: Cooperative, appropriate mood and affect. LABORATORY DATA WBC 5.3, hemoglobin 9.6, platelet count 149. Sodium 145, potassium 3.6, chloride 111, bicarb 26, BUN 13, creatinine 0.56, total bili 0.3, AST 12 ALT, 20, alk phos 84. Coags 1.0. IMPRESSION 1. Hematochezia likely secondary to diverticular bleeding. Status post tagged bleeding scan which was negative. Therefore, angiography with embolization was not performed. The patient has not had any new bleeding since yesterday. 2. Acute anemia of blood loss secondary to above status post one unit of packed RBCs 3. History of diverticulosis on the left side of the colon. 4. The patient has recently undergone EGD and colonoscopy in April of 2016. RECOMMENDATIONS 1. Advance diet as tolerated. 2. Discontinue Protonix drip. 3. Discontinue IV antibiotics, no clear signs or symptoms of diverticulitis. Therefore, antibiotics are not needed. If the patient tolerates oral intake well and is not having any episodes of GI bleeding, then I do not have any objection to discharge from the GI standpoint with the explanation to the patient that if she has recurrence of her bleeding, she is to come back to the hospital. 4. Patient advised to start iron supplementation one tablet daily for the next one month. 5. Follow up in the office with Dr. Devaughn Kamara in the next three to four weeks. Thank you for allowing us to participate the care of this patient. After the dictation, i received a call from the nurse stating pt just had large bloody bowel movements. Will amend the plan, recommend bowel preparation today and Will plan for EGD and Colon tomorrow. MD MAXX Salomon/VARINDER /10:45 AM /10:55 AM ROSARIO
[2017-02-13 12:55] LABS: HEMATOCRIT 29.7 % (35.0-46.0); HEMOGLOBIN 9.9 GM/DL (11.6-15.3)
[2017-02-13] MEDS ORDERED: PEG (High)/E-LYTE SOLN 4000 ML BTL PO ONE (18:00)
[2017-02-13 20:12] LABS: HEMATOCRIT 29.7 % (35.0-46.0); HEMOGLOBIN 9.9 GM/DL (11.6-15.3)
[2017-02-14] VITALS (8 sets, daily range): BP systolic 107–138; BP diastolic 55–70; PULSE 82–100; RESP 17–22; TEMP 98–98.3; O2SAT 96–100
[2017-02-14] MEDS: CHLORHEXIDINE GLUCONATE 2 % 1 PACK (2 CLOTHS)(taper/protocol) TOPICAL SCH (04:00)
[2017-02-14] MEDS: SODIUM CHLOR 0.9% 1000 ML INJ 1,000 ML IV SCH (09:00)
[2017-02-14] MEDS: SODIUM CHLORIDE 0.9% FLUSH 10 ML FLUSH IV FLUSH SCH (09:01)
--- NOTE | 2017-02-14 11:48 | GIPROC ---
[facility] [address] [facility]. [facility], [address] COLONOSCOPY PROCEDURE REPORT EXAM DATE: 02/14/2017 PATIENT NAME: Arti Londono MR #: [id number] BIRTHDATE: 1955 ENDOSCOPIST: Tamika Rascon MD ORDER #: [id number] PRINT DESIGNER: Krystal Wild STATUS: inpatient INDICATIONS: The patient is a 61 yr old female here for a colonoscopy due to rectal bleeding PROCEDURE PERFORMED: Colonoscopy, diagnostic MEDICATIONS: Per Anesthesia and None. PREP QUALITY: fair PREP TYPE:GoLytely ESTIMATED BLOOD LOSS: None CONSENT: The patient understands the risks and benefits of the procedure and understands that these risks include, but are not limited to: sedation, allergic reaction, infection, perforation and/or bleeding. Alternative means of evaluation and treatment include, among others: physical exam, x-rays, and/or surgical intervention. The patient elects to proceed with this endoscopic procedure. medical equipment was checked for proper function. Hand hygiene and appropriate measures for infection prevention was taken. After the risks, benefits and alternatives of the procedure were thoroughly explained, Informed consent was verified, confirmed and timeout was successfully executed by the treatment team. A digital exam was performed and revealed no abnormalities of the rectum The Pentax [id number] endoscope was introduced through the anus and advanced to the cecum, which was identified by both the appendix and ileocecal valve. The instrument was then slowly withdrawn as the colon was fully examined. COLON FINDINGS: The colonic mucosa appeared normal. Red blood as well as old dark blood mixed with stool was noted throughout the colon. More so in the descending colon and sigmoid colon. Normal terminal ileum. Moderate diverticulosis was noted in the sigmoid colon, descending colon, transverse colon, and ascending colon. No bleeding was noted from the diverticulosis. The diverticula were irrigated to eval for acitive bleeding. No active bleeding was noted. Retroflexed views revealed internal hemorrhoids The scope was then completely withdrawn from the patient and the procedure terminated. ADVERSE EVENTS: There were no complications. IMPRESSIONS: 1. The colonic mucosa appeared normal 2. Red blood as well as old dark blood mixed with stool was noted throughout the colon. More so in the descending colon and sigmoid colon. All diverticulosis were irrigated to eval for active bleeding. NO active bleeding diveticulum were noted. 3. Normal terminal ileum 4. Moderate diverticulosis was noted in the sigmoid colon, descending colon, transverse colon, and ascending colon 5. Retroflexed views revealed internal hemorrhoids 6. Was performed 7. Revealed no abnormalities of the rectum RECOMMENDATIONS: 1. Advance diet as tolerated 2. Avoid NSAIDS 3. Monitor stool for continued bleeding 4. Monitor hb 5. If bleeding reoccurs then consider another tagged RBC scan. RECALL: NONE Tamika Rascon MD eSigned: Tamika Rascon MD 02/14/2017 11:47 AM cc: PATIENT NAME: Arti Londono MR#: [id number]
--- NOTE | 2017-02-14 11:51 | GIPROC ---
[facility] [address] [facility]. [facility], [id number] EGD PROCEDURE REPORT EXAM DATE: 02/14/2017 PATIENT NAME: Arti Londono MR#: [id number] BIRTHDATE: 1955 STATUS: inpatient ATTENDING: Tamika Rascon MD VISIT ID: [id number] INTERCHANGE AGENT: Krystal Wild ORDER #: [id number] INDICATIONS: The patient is a 61 yr old female here for an EGD due to hematochezia. PROCEDURE PERFORMED: EGD, diagnostic MEDICATIONS: Per Anesthesia and None. ASA CLASS: Class II PHYSICAL EXAM: normal CONSENT: The patient understands the risks and benefits of the procedure and understands that these risks include, but are not limited to: sedation, allergic reaction, infection, perforation and/or bleeding. Alternative means of evaluation and treatment include, among others: physical exam, x-rays, and/or surgical intervention. The patient elects to proceed with this endoscopic procedure. DESCRIPTION OF PROCEDURE: for proper function. Hand hygiene and appropriate measures for infection prevention was taken. After the risks, benefits and alternatives of the procedure were thoroughly explained, Informed consent was verified, confirmed and timeout was successfully executed by the treatment team. The [employer] [id number] endoscope was introduced through the mouth and advanced to the . The instrument was slowly withdrawn as the mucosa was fully examined. ESOPHAGUS: The mucosa of the esophagus appeared normal. STOMACH: The mucosa of the stomach appeared normal. DUODENUM: The duodenal mucosa appeared normal. Retroflexed views revealed a hiatal hernia The gastroscope was then slowly withdrawn and removed. COMPLICATIONS: There were no complications. IMPRESSIONS: 1. The esophagus appeared normal 2. The mucosa of the stomach appeared normal 3. Normal duodenal mucosa 4. Retroflexed views revealed a hiatal hernia RECOMMENDATIONS: 1. colonoscopy PATIENT CONDITION: stable DISPOSITION: Inpatient REPEAT EXAM: NONE Tamika Rascon MD eSigned: Tamika Rascon MD 02/14/2017 11:51 AM cc: PATIENT NAME: Arti Londono MR#: [id number]
[2017-02-14] MEDS ORDERED: *MEPERIDINE 25 MG INJ VIAL PERIprocedural Use ONLY ONE (11:58)
[2017-02-14] MEDS ORDERED: PHENYLEPH/NS 1000 MCG/10 ML SYR IV ONE (12:00)
[2017-02-14] MEDS ORDERED: PROPOFOL 200 MG/20 ML AMP IV ONE (12:00)
[2017-02-14] MEDS ORDERED: LIDOCAINE HCL 1% PF 5 ML SYRINGE OTHER ONE (12:00)
--- NOTE | 2017-02-14 12:35 | HHI.PR ---
Subjective Remarks Follow-up acute GI bleed/severe anemia 02/13/17-patient seen and examined, denies any current GI bleed she status post angiography without embolization. She was transfused PRBC yesterday. H&H stable today. Patient reports daily use of Excedrin. Patient currently nothing by mouth and would like to have her diet advanced 02/14/17-patient seen and examined, currently nothing by mouth pending panendoscopy. She reports now dark blood. H&H appears to be stable Objective Vitals Vital Signs Date Time Temp Pulse Resp B/P (MAP) Pulse Ox O2 Delivery O2 Flow Rate FiO2 02/14/17 12:15 87 20 122/63 (82) 100 Nasal Cannula 2 02/14/17 12:00 87 18 138/67 (90) 100 Nasal Cannula 2 02/14/17 12:00 98.3 87 138/67 (90) 02/14/17 11:53 98.3 84 20 126/58 (80) 92 Nasal Cannula 2 02/14/17 08:00 98.2 95 22 128/70 (89) 98 02/14/17 08:00 95 02/14/17 06:00 88 02/14/17 04:00 98.0 84 17 107/55 (72) 96 02/14/17 04:00 84 02/14/17 02:00 86 02/14/17 00:00 82 02/14/17 00:00 98.2 82 18 128/60 (82) 96 02/13/17 22:00 86 02/13/17 20:00 107 02/13/17 20:00 98.0 107 18 150/95 (113) 96 02/13/17 18:30 28 02/13/17 18:00 97 02/13/17 16:00 98.8 96 28 117/73 (88) 99 02/13/17 16:00 96 02/13/17 14:00 100 I/O 02/13/17 02/13/17 02/13/17 02/14/17 02/14/17 02/14/17 07:00 15:00 23:00 07:00 15:00 23:00 Intake Total 1500 ml 1133 ml 3200 ml Output Total 1800 ml 1800 ml 800 ml Balance -300 ml 1133 ml 1400 ml -800 ml Intake Oral 200 ml Oral Supplement 2000 ml IV Total 1500 ml 1133 ml 1000 ml Output Urine Total 1800 ml 1800 ml 800 ml # Bowel Movements 3 7 Result Diagram: 02/13/178 02/13/17 0115 Imaging Last Impressions GI Bleed Scan Nuclear Medicine 02/12/17 1438 Signed Impressions: Service Date/Time: Sunday, February 12, 2017 16:00 - CONCLUSION: 1. No evidence for active GI bleed at this time. Jer Harris MD Objective Remarks GENERAL: NAD SKIN: Warm and dry. HEAD: Normocephalic. EYES: No scleral icterus. No injection or drainage. NECK: Supple, trachea midline. No JVD or lymphadenopathy. CARDIOVASCULAR: Regular rate and rhythm without murmurs, gallops, or rubs. RESPIRATORY: Breath sounds equal bilaterally. No accessory muscle use. GASTROINTESTINAL: Abdomen soft, non-tender, nondistended. MUSCULOSKELETAL: No cyanosis, or edema. BACK: Nontender without obvious deformity. No CVA tenderness. A/P Problem List: (1) GI (gastrointestinal bleed) ICD Code: K92.2 - Gastrointestinal hemorrhage, unspecified (2) Symptomatic anemia ICD Code: D64.9 - Anemia, unspecified Assessment and Plan 61 year-old female with Acute GI bleed Symptomatic anemia Status post angiography without embolization 02/12/17, with no evidence of active GI bleed Transfused PRBC H&H currently stable Currently on PPI drip Plan for panendoscopy today 02/14/17 Appreciate input from gastroenterology Patient was advised to avoid NSAIDs History of diverticular disease Currently on IV Cipro and Flagyl, will discontinue antibiotics Hypokalemia Replace electrolyte and monitor DVT prophylaxis: Chemical anti-prophylaxis is contraindicated, bilateral SCDs GI prophylaxis: PPI Problem Qualifiers (1) GI (gastrointestinal bleed): Qualified Codes: K92.2 - Gastrointestinal hemorrhage, unspecified Rico Gould MD Feb 14, 2017 12:35
[2017-02-14] MEDS ORDERED: DO NOT ADM ANY ANTICOAGULANT DRUGS PRN (14:00)
--- NOTE | 2017-02-14 14:49 | EKG ---
Date Performed: 02/14/2017 Time Performed: 09:07:20 PTAGE: 61 years EKG: Sinus rhythm Since previous tracing, no significant change noted NORMAL ECG PREVIOUS TRACING : 06/07/2016 08.16 DOCTOR: Alex Torres Interpretating Date/Time 02/14/2017 14:49:17
[2017-02-14] MEDS ORDERED: PROT40TA PO (15:15)
--- NOTE | 2017-02-14 15:17 | HHI.DS ---
Discharge Summary Admission Date Feb 12, 2017 at 12:10 Discharge Date: Feb 14, 2017 Admitting Diagnosis Bloody diarrhea (1) GI (gastrointestinal bleed) ICD Code: K92.2 - Gastrointestinal hemorrhage, unspecified (2) Symptomatic anemia ICD Code: D64.9 - Anemia, unspecified Procedures none Brief History - From Admission Written by Sneha De Anda, acting as scribe for Dr. Zazueta on 02/12/17 at 12:13. Ms. Londono is a pleasant 61-year-old female patient with a known medical history of chronic tension headaches who presented to the ED with bloody diarrhea. Patient states that she was in her normal state of health, feeling overall well and went to sleep last evening and shortly after around 2300 she awoke lying in a puddle of blood-soaked sheets. Does admit to waking up with generalized weakness, lightheadedness, nausea and dyspnea on exertion. She states she had a few bouts of diarrhea a couple days ago but did not notice any presence of blood. She denies any recent illness including fever, chills, headache, shortness of breath, fatigue, abdominal pain, nausea, vomiting, or dysuria. Since this morning patient states she has been having bloody diarrhea every 20 minutes with worsening symptoms of fatigue, lightheadedness, and diaphoresis with increased movement and activity. Patient does state she has chronic tension headaches for which she takes Excedrin once per day for years now. Patient did undergo a routine EGD and colonoscopy with Dr. Asad carolina in April which was reportedly unremarkable. It should be noted that patient was being treated for shoulder pain with a prednisone taper and is currently on her 4th day of the taper. Denies any recent antibiotic use. CBC/BMP: 02/13/17195702/13/17 0115 Significant Findings Laboratory Tests Test 02/12/17 04:35 02/12/17 05:15 02/12/17 10:40 02/12/17 14:49 Neutrophils (%) (Auto) 74.1 % (16.0-70.0) Basophils (%) (Auto) 2.1 % (0.0-2.0) Blood Urea Nitrogen 28 MG/DL (7-18) Random Glucose 125 MG/DL (74-106) Aspartate Amino Transf (AST/SGOT) 12 U/L (15-37) Estimat Glomerular Filtration Rate 73 ML/MIN (>89) Hemoglobin 9.8 GM/DL (11.6-15.3) Hematocrit 29.9 % (35.0-46.0) Test 02/12/17 19:17 02/13/17 01:15 02/13/17 06:45 02/13/17 12:43 Hemoglobin 10.3 GM/DL (11.6-15.3) 9.4 GM/DL (11.6-15.3) 9.6 GM/DL (11.6-15.3) 9.9 GM/DL (11.6-15.3) Hematocrit 30.9 % (35.0-46.0) 27.7 % (35.0-46.0) 29.4 % (35.0-46.0) 29.7 % (35.0-46.0) Red Blood Count 3.22 MIL/MM3 (4.00-5.30) Platelet Count 149 TH/MM3 (150-450) Total Protein 5.0 GM/DL (6.4-8.2) Calcium Level 7.3 MG/DL (8.5-10.1) Potassium Level 3.3 MEQ/L (3.5-5.1) Chloride Level 111 MEQ/L (98-107) Test 02/13/17 19:58 Hemoglobin 9.9 GM/DL (11.6-15.3) Hematocrit 29.7 % (35.0-46.0) Imaging Last Impressions GI Bleed Scan Nuclear Medicine 02/12/17 4798 Signed Impressions: Service Date/Time: Sunday, February 12, 2017 16:00 - CONCLUSION: 1. No evidence for active GI bleed at this time. Jer Harris MD PE at Discharge GENERAL: NAD SKIN: Warm and dry. HEAD: Normocephalic. EYES: No scleral icterus. No injection or drainage. NECK: Supple, trachea midline. No JVD or lymphadenopathy. CARDIOVASCULAR: Regular rate and rhythm without murmurs, gallops, or rubs. RESPIRATORY: Breath sounds equal bilaterally. No accessory muscle use. GASTROINTESTINAL: Abdomen soft, non-tender, nondistended. MUSCULOSKELETAL: No cyanosis, or edema. BACK: Nontender without obvious deformity. No CVA tenderness. Hospital Course She was admitted secondary to acute GI bleed and symptomatic anemia for which she was transfused 2 units PRBC and started on PPI drip with consultation to gastroenterology. Previous scans and panendoscopy did not reveal any source of GI bleed. H&H was stable and patient was discharged home .She was advised to stop all NSAIDs Pt Condition on Discharge: Stable Discharge Disposition: Discharge Home Discharge Time: <= 30 minutes Discharge Instructions DIET: Follow Instructions for: Heart Healthy Diet Activities you can perform: Regular-No Restrictions Follow up Referrals: Gastroenterology PCP Follow-up - 1 Week New Medications: Pantoprazole (Protonix) 40 Mg Tab 40 MG PO DAILY for Reflux, #30 TAB 0 Refills Continued Medications: Prednisone (Prednisone) 5 Mg Tab 4 MG PO DAILY, TAB 0 Refills Discontinued Medications: Cchwxjn-Majdyxaalmmvu-Foquyqja (Excedrin Extra Strength) 250 Mg-250 Mg-65 Mg Tab MG PO Ibuprofen (Ibuprofen) 200 Mg Cap 400 MG PO Q6H PRN for PAIN SCALE 1 TO 7, CAP 0 Refills Rico Gould MD Feb 14, 2017 15:17
== END 2017-02-14 16:05 | disposition home or self-care (01) | DRG 378 ==
LOC: PHED 03:35 → PHEDA 05:53 → PH3B 06:45 → PHICU 12:02 → OBSVTOIN 12:10 → HIMN 14:33
PROVIDERS: ADMIT Hospitalist; ATTEND Hospitalist
PROC: 30233N1 Transfusion of Nonautologous Red Blood Cells into Peripheral Vein, Percutaneous Approach (ICD-10-PCS; principal; 2017-02-12)
PROC: 0DJ08ZZ Inspection of Upper Intestinal Tract, Via Natural or Artificial Opening Endoscopic (ICD-10-PCS; 2017-02-14)
PROC: 0DJD8ZZ Inspection of Lower Intestinal Tract, Via Natural or Artificial Opening Endoscopic (ICD-10-PCS; 2017-02-14 10:50)
DX: K92.1 Melena (principal); D62 Acute posthemorrhagic anemia; I95.9 Hypotension, unspecified; E87.6 Hypokalemia; G44.229 Chronic tension-type headache, not intractable; K64.8 Other hemorrhoids; K44.9 Diaphragmatic hernia without obstruction or gangrene; K57.30 Diverticulosis of large intestine without perforation or abscess without bleeding; M25.519 Pain in unspecified shoulder; R00.0 Tachycardia, unspecified
CPT/HCPCS: 36430; 76937; 78278; 80048; 80053; 84155; 85014; 85018; 85025; 85610; 85730; 86850; 86900; 86901; 86920; 87493; 87641; 93005; 96365; A9560; C9113; J0744; J2175; J2370; J2405; J7030; P9016

== ENCOUNTER 2017-02-17 14:43 | Inpatient (IN) | payer OTHER ==
[~2017-02-17] VITALS: Ht 172.7 cm; Wt 78.5 kg
[2017-02-17] VITALS (11 sets, daily range): BP systolic 91–123; BP diastolic 51–69; PULSE 89–140; RESP 16–20; TEMP 97.9–99.4; O2SAT 96–100
[2017-02-17] MEDS: SODIUM CHLOR 0.9% 1000 ML INJ 1,000 ML IV SCH (02:00)
[~2017-02-17 14:43] MED LIST changes: -EXCETAB42 PO; -IBUP200C PO; +PRED5TAB PO; +PROT40TA PO
[2017-02-17] MEDS ORDERED: SODIUM CHLOR 0.9% 1000 ML INJ 1,000 ML IV ONE (15:30)
[2017-02-17 15:37] LABS: AUTOMATED NEUTROPHIL # 5.1 TH/MM3 (1.8-7.7); BASOPHIL # 0.1 TH/MM3 (0-0.2); BASOPHIL % 0.9 % (0.0-2.0); EOSINOPHIL # 0.2 TH/MM3 (0-0.4); EOSINOPHIL % 2.7 % (0.0-4.0); LYMPH % 28.3 % (9.0-44.0); LYMPHOCYTE # 2.3 TH/MM3 (1.0-4.8); MEAN CELL VOLUME 87.5 FL (80.0-100.0); MEAN CORPUSCULAR HEMOGLOBIN 29.9 PG (27.0-34.0); MEAN CORPUSCULAR HGB CONC 34.1 % (32.0-36.0); MEAN PLATELET VOLUME 9.4 FL (7.0-11.0); MONO % 6.6 % (0.0-8.0); MONOCYTE # 0.5 TH/MM3 (0-0.9); NEUT % 61.5 % (16.0-70.0); PLATELET COUNT 256 TH/MM3 (150-450); RED BLOOD COUNT 2.27 MIL/MM3 (4.00-5.30); RED CELL DISTRIBUTION WIDTH 15.1 % (11.6-17.2); WHITE BLOOD COUNT 8.2 TH/MM3 (4.0-11.0)
[2017-02-17 15:41] LABS: HEMATOCRIT 19.9 % (35.0-46.0); HEMOGLOBIN 6.8 GM/DL (11.6-15.3)
[2017-02-17] MEDS ORDERED: SODIUM CHLOR 0.9% 250 ML INJ 250 ML IV ONE (15:45)
[2017-02-17 15:49] LABS: ALBUMIN 2.8 GM/DL (3.4-5.0); ALT (GPT) 16 U/L (10-53); AST (GOT) 14 U/L (15-37); BLOOD UREA NITROGEN 15 MG/DL (7-18); CALCIUM 7.9 MG/DL (8.5-10.1); CHLORIDE 108 MEQ/L (98-107); CREATININE 0.72 MG/DL (0.50-1.00); GLOMERULAR FILTRATION RATE 83 ML/MIN (>89); GLUCOSE,RANDOM 108 MG/DL (74-106); SODIUM (NA) 142 MEQ/L (136-145)
[2017-02-17 15:50] LABS: INTERNATIONAL NORMALIZED RATIO 0.9 RATIO; PROTHROMBIN TIME - PATIENT 9.6 SEC (9.8-11.6)
[2017-02-17 15:52] LABS: ALKALINE PHOSPHATASE 50 U/L (45-117); TOTAL BILIRUBIN ADULT 0.1 MG/DL (0.2-1.0); TOTAL PROTEIN 5.5 GM/DL (6.4-8.2)
--- NOTE | 2017-02-17 15:58 | PD ---
HPI Chief Complaint: GI Complaint Time Seen by Provider: 15:04 Travel History International Travel<30 days: No Contact w/Intl Traveler<30days: No Traveled to known affect area: No History of Present Illness HPI 61-year-old female presents emergency department for evaluation of tachycardia and dyspnea on exertion. Patient reports no shortness of breath with resting but when she stands she becomes tachycardic in the 120s, dyspneic and diaphoretic. She was just evaluated in our facility on 12 of February for GI bleed, bloody diarrhea. Patient was admitted, received a blood transfusion and colonoscopy while in our facility. The colonoscopy showed diverticulosis with no active bleeding. Patient was discharged from our facility 2 days ago. On 13 February hemoglobin was 9.9. Patient states she was told that there still might be some blood in her stool but not significant bleeding. Patient reports she is still having loose stools throughout the day that are bloody. Patient denies fevers, chills, malaise, chest pain, abdominal pain, nausea or vomiting. PFSH Past Medical History Autoimmune Disease: No Cancer: No Cardiovascular Problems: No Diabetes: No Diminished Hearing: No Endocrine: No Gastrointestinal Disorders: Yes (GI BLEED) GERD: Yes Glaucoma: No Genitourinary: No Headaches: Yes Hepatitis: No Hiatal Hernia: No Hypertension: No Immune Disorder: No Musculoskeletal: No Neurologic: No Psychiatric: No Respiratory: No Immunizations Current: Yes Thyroid Disease: No Menopausal: Yes Past Surgical History AICD: No Section: Yes Gynecologic Surgery: Yes Hysterectomy: Yes Joint Replacement: No Pacemaker: No Other Surgery: Yes (VEIN LIGATION) Social History Alcohol Use: No Tobacco Use: No Substance Use: No Allergies-Medications (Allergen,Severity, Reaction): Coded Allergies: kiwi (Unverified Allergy, Severe, ANAPHYLACTIC SHOCK, 02/17/17) Reported Meds & Prescriptions Reported Meds & Active Scripts Active Review of Systems Except as stated in HPI: all other systems reviewed are Neg Physical Exam Narrative GENERAL: Well-nourished, well-developed pale 61-year-old female patient in no acute distress. Nontoxic appearing. SKIN: Focused skin assessment warm/dry. HEAD: Normocephalic. Atraumatic. EYES: No scleral icterus. No injection or drainage. NECK: Supple, trachea midline. No JVD or lymphadenopathy. CARDIOVASCULAR: Tachycardic regular rate and rhythm without murmurs, gallops, or rubs. RESPIRATORY: Breath sounds equal bilaterally. No accessory muscle use. GASTROINTESTINAL: Abdomen soft, non-tender, nondistended. MUSCULOSKELETAL: No cyanosis, or edema. BACK: Nontender without obvious deformity. No CVA tenderness. Data Data Last Documented VS Vital Signs Date Time Temp Pulse Resp B/P (MAP) Pulse Ox O2 Delivery O2 Flow Rate FiO2 02/17/17 15:21 20 02/17/17 15:20 113 101/55 (70) 127 102/60 (74) 152 91/51 (64) 02/17/17 14:45 98.9 100 Orders Orders Electrocardiogram (02/17/17 15:14) Complete Blood Count With Diff (02/17/17 15:14) Comprehensive Metabolic Panel (02/17/17 15:14) Prothrombin Time / Inr (Pt) (02/17/17 15:14) Act Partial Throm Time (Ptt) (02/17/17 15:14) Orthostatic Vital Signs (02/17/17 15:14) Iv Access Insert/Monitor (02/17/17 15:14) Ecg Monitoring (02/17/17 15:14) Sodium Chlor 0.9% 1000 Ml Inj (Ns 1000 M (02/17/17 15:30) Type And Screen (02/17/17 15:43) Red Blood Cells (Rbc) (02/17/17 15:43) Sodium Chlor 0.9% 250 Ml Inj (Ns 250 Ml (02/17/17 15:45) Admit To Inpatient (02/17/17 ) Vital Signs (Adult) Q4H (02/17/17 17:02) Activity Oob With Assistance (02/17/17 17:02) Magistrate / Telemetry .CONTINUOUS (02/17/17 17:02) Diet Npo (02/17/17 Dinner) Sodium Chlor 0.9% 1000 Ml Inj (Ns 1000 M (02/17/17 17:30) Sodium Chloride 0.9% Flush (Ns Flush) (02/17/17 17:15) Sodium Chloride 0.9% Flush (Ns Flush) (02/17/17 21:00) Basic Metabolic Panel (Bmp) (02/18/17 06:00) Complete Blood Count With Diff (02/18/17 06:00) Naloxone Inj (Narcan Inj) (02/17/17 17:15) Inpatient Certification (02/17/17 ) Admit Order (Ed Use Only) (02/17/17 17:02) Blood Product Administration (02/17/17 17:04) Labs Laboratory Tests Test 02/17/17 15:19 White Blood Count 8.2 TH/MM3 Red Blood Count 2.27 MIL/MM3 Hemoglobin 6.8 GM/DL Hematocrit 19.9 % Mean Corpuscular Volume 87.5 FL Mean Corpuscular Hemoglobin 29.9 PG Mean Corpuscular Hemoglobin Concent 34.1 % Red Cell Distribution Width 15.1 % Platelet Count 256 TH/MM3 Mean Platelet Volume 9.4 FL Neutrophils (%) (Auto) 61.5 % Lymphocytes (%) (Auto) 28.3 % Monocytes (%) (Auto) 6.6 % Eosinophils (%) (Auto) 2.7 % Basophils (%) (Auto) 0.9 % Neutrophils # (Auto) 5.1 TH/MM3 Lymphocytes # (Auto) 2.3 TH/MM3 Monocytes # (Auto) 0.5 TH/MM3 Eosinophils # (Auto) 0.2 TH/MM3 Basophils # (Auto) 0.1 TH/MM3 CBC Comment DIFF FINAL Differential Comment Prothrombin Time 9.6 SEC Prothromb Time International Ratio 0.9 RATIO Activated Partial Thromboplast Time 20.5 SEC Blood Urea Nitrogen 15 MG/DL Creatinine 0.72 MG/DL Random Glucose 108 MG/DL Total Protein 5.5 GM/DL Albumin 2.8 GM/DL Calcium Level 7.9 MG/DL Alkaline Phosphatase 50 U/L Aspartate Amino Transf (AST/SGOT) 14 U/L Alanine Aminotransferase (ALT/SGPT) 16 U/L Total Bilirubin 0.1 MG/DL Sodium Level 142 MEQ/L Potassium Level 3.6 MEQ/L Chloride Level 108 MEQ/L Carbon Dioxide Level 29.0 MEQ/L Anion Gap 5 MEQ/L Estimat Glomerular Filtration Rate 83 ML/MIN [facility] Medical Decision Making Medical Screen Exam Complete: Yes Emergency Medical Condition: Yes Differential Diagnosis Differential diagnoses include but not limited to anemia, GI bleed, colitis, diverticulitis, IBS Narrative Course Patient placed on monitor, IV obtained and blood work sent to the lab. CBC, CMP , PT/INR ordered and pending. Orthostatic vital signs ordered and pending. Patient was orthostatic positive. 1 L normal saline bolus ordered. EKG ordered and interpreted. EKG shows sinus tachycardia at 107. CBC results severe anemia with hemoglobin 6.8. 2 units PRBC ordered. CMP shows hypoalbuminemia at 2.8, calcium at 7.9 otherwise no acute abnormalities. PT/INR shows no acute abnormalities. Patient will be admitted to the hospital for symptomatic anemia, blood transfusion and serial H&H. Dr Gerber accepted admission. Dr Rascon called and notified of H&H. Dr Rascon consulted. Patient admitted at this time. Diagnosis Primary Impression: Symptomatic anemia Additional Impression: GI (gastrointestinal bleed) Qualified Codes: K92.2 - Gastrointestinal hemorrhage, unspecified Admitting Information Admitting Physician Requests: Admit Sneha Davis Feb 17, 2017 15:58
[2017-02-17] MEDS ORDERED: SODIUM CHLORIDE 0.9% FLUSH 10 ML FLUSH IV FLUSH PRN (17:15)
[2017-02-17] MEDS ORDERED: NALOXONE HCL 0.4 MG/ML AMP IV PUSH PRN (17:15)
--- NOTE | 2017-02-17 17:16 | HHI.HP ---
[facility] Massimo Morley MD Admission Diagnosis symptomatic anemia, GI bleed Diagnoses: Travel History International Travel<30 Days: No Contact w/Intl Traveler <30 Da: No Traveled to Known Affected Are: No History of Present Illness History from patient, ER REPAIRER AND CHECKER medication, and review of medical records. Patient reported that she was admitted recently to our hospital for GI bleed with bright red blood per rectum. Medical records reviewed. On February 14, 2017, patient underwent colonoscopy for this acute GI bleed. She also has had bleeding scan done at that time. She has had recent EGD as well. All studies did not see any active bleeding. Patient reports that her GI doctor Was suspecting diverticular bleed as she has had multiple diverticula . She was discharged home and was told to return back to hospital immediately if she has further episodes of bleeding. Patient reports that since discharge home on February 14, 2017, she was feeling somewhat lightheaded and dizziness. She kept drinking large amounts of Gatorade and water at home to keep herself hydrated. However she started feeling severe palpitations, feeling of heart pounding, dizziness, near syncopal episodes. She states she also continued to have bleeding every time she goes to make bowel movements. Only known that the blood is somewhat little bit darker than her previous blood. She also reports of shortness of breath on movement and getting up. She stated she felt like horse is kicking on her head for migraine headaches as well. While in emergency room, patient has had guaiac done which was positive. Her blood work also revealed hemoglobin of 6.8. Her baseline is 12-14. Review of Systems Except as stated in HPI: all other systems reviewed are Neg Past Family Social History Past Medical History diverticulosis tension headaches- used to take excedrin- but off it since last week Past Surgical History hysterectomy varicose veins ligation c section egd colonoscopy Allergies: Coded Allergies: kiwi (Unverified Allergy, Severe, ANAPHYLACTIC SHOCK, 02/17/17) Family History sister- breast cancer , dermatomyositis, lupus dad- hodgkins lymphoma Social History never smoked, only drinks once a year or so no drugs Physical Exam Vital Signs Vital Signs Date Time Temp Pulse Resp B/P (MAP) Pulse Ox O2 Delivery O2 Flow Rate FiO2 02/17/17 15:21 20 02/17/17 15:20 113 20 101/55 (70) 127 20 102/60 (74) 152 20 91/51 (64) 02/17/17 14:45 98.9 140 18 115/60 (78) 100 Physical Exam GENERAL: This is a well-nourished, well-developed patient, in no apparent distress. Pallor present SKIN: No rashes, ecchymoses or lesions. Cool and dry. HEAD: Atraumatic. Normocephalic. No temporal or scalp tenderness. EYES: No scleral icterus. No injection or drainage. ENT: Nose without bleeding, purulent drainage or septal hematoma. Airway patent. NECK: Trachea midline. No JVD CARDIOVASCULAR: Tachycardic, regular rhythm without murmurs, gallops, or rubs. RESPIRATORY: Clear to auscultation. Breath sounds equal bilaterally. No wheezes , rales, or rhonchi. GASTROINTESTINAL: Abdomen soft, non-tender, nondistended. No guarding. MUSCULOSKELETAL: Extremities without clubbing, cyanosis, or edema. No calf tenderness. NEUROLOGICAL: Awake and alert.Motor and sensory grossly within normal limits. Normal speech. Laboratory Laboratory Tests Test 02/17/17 15:19 White Blood Count 8.2 Red Blood Count 2.27 Hemoglobin 6.8 Hematocrit 19.9 Mean Corpuscular Volume 87.5 Mean Corpuscular Hemoglobin 29.9 Mean Corpuscular Hemoglobin Concent 34.1 Red Cell Distribution Width 15.1 Platelet Count 256 Mean Platelet Volume 9.4 Neutrophils (%) (Auto) 61.5 Lymphocytes (%) (Auto) 28.3 Monocytes (%) (Auto) 6.6 Eosinophils (%) (Auto) 2.7 Basophils (%) (Auto) 0.9 Neutrophils # (Auto) 5.1 Lymphocytes # (Auto) 2.3 Monocytes # (Auto) 0.5 Eosinophils # (Auto) 0.2 Basophils # (Auto) 0.1 CBC Comment DIFF FINAL Differential Comment Prothrombin Time 9.6 Prothromb Time International Ratio 0.9 Activated Partial Thromboplast Time 20.5 Blood Urea Nitrogen 15 Creatinine 0.72 Random Glucose 108 Total Protein 5.5 Albumin 2.8 Calcium Level 7.9 Alkaline Phosphatase 50 Aspartate Amino Transf (AST/SGOT) 14 Alanine Aminotransferase (ALT/SGPT) 16 Total Bilirubin 0.1 Sodium Level 142 Potassium Level 3.6 Chloride Level 108 Carbon Dioxide Level 29.0 Anion Gap 5 Estimat Glomerular Filtration Rate 83 Result Diagram: 02/17/17 1519 02/17/17 1519 Imaging Laboratory Tests Test 02/17/17 15:19 Prothromb Time International Ratio 0.9 RATIO Prothrombin Time 9.6 SEC (9.8-11.6) Vital Signs Date Time Temp Pulse Resp B/P (MAP) Pulse Ox O2 Delivery O2 Flow Rate FiO2 02/17/17 20:11 104 18 113/64 (80) 02/17/17 19:15 99.4 97 02/17/17 18:22 Room Air Caprini VTE Risk Assessment Caprini VTE Risk Assessment: Mod/High Risk (score >= 2) Caprini Risk Assessment Model Point Value = 1 Point Value = 2 Point Value = 3 Point Value = 5 Age 41-60 Minor surgery BMI > 25 kg/m2 Swollen legs Varicose veins or History of unexplained or recurrent spontaneous Oral contraceptives or hormone replacement Sepsis (< 1 month) Serious lung disease, including pneumonia (< 1 month) Abnormal pulmonary function Acute myocardial infarction Congestive heart failure (< 1 month) History of inflammatory bowel disease Medical patient at bed rest Age 61-74 Arthroscopic surgery Major open surgery (> 45 min) Laparoscopic surgery (> 45 min) Malignancy Confined to bed (> 72 hours) Immobilizing plaster cast Central venous access Age >= 75 History of VTE Family history of VTE Factor V Leiden Prothrombin [id number] Lupus anticoagulant Anticardiolipin antibodies Elevated serum homocysteine Heparin-induced thrombocytopenia Other congenital or acquired thrombophilia Stroke (< 1 month) Elective arthroplasty Hip, pelvis, or leg fracture Acute spinal cord injury (< 1 month) Prophylaxis Regimen Total Risk Factor Score Risk Level Prophylaxis Regimen 0-1 Low Early ambulation 2 Moderate Order ONE of the following: *Sequential Compression Device (SCD) *Heparin 5000 units SQ BID 3-4 Higher Order ONE of the following medications: *Heparin 5000 units SQ TID *Enoxaparin/Lovenox 40 mg SQ daily (WT < 150 kg, CrCl > 30 mL/min) *Enoxaparin/Lovenox 30 mg SQ daily (WT < 150 kg, CrCl > 10-29 mL/min) *Enoxaparin/Lovenox 30 mg SQ BID (WT < 150 kg, CrCl > 30 mL/min) AND/OR *Sequential Compression Device (SCD) 5 or more Highest Order ONE of the following medications: *Heparin 5000 units SQ TID (Preferred with Epidurals) *Enoxaparin/Lovenox 40 mg SQ daily (WT < 150 kg, CrCl > 30 mL/min) *Enoxaparin/Lovenox 30 mg SQ daily (WT < 150 kg, CrCl > 10-29 mL/min) *Enoxaparin/Lovenox 30 mg SQ BID (WT < 150 kg, CrCl > 30 mL/min) AND *Sequential Compression Device (SCD) Assessment and Plan Assessment and Plan Impression: Symptomatic anemia secondary to acute blood loss anemia Lower GI bleed. Likely diverticular bleed. Recent history of GI bleed on February 12, 2017. Discharge home on January. Workup did not reveal any active bleed. History of diverticulosis History of migraine headaches/tension headaches. Was previously taking Excedrin. Has not been taking it since she had GI bleed. Plan: iv fluid bolus 2 units prbc now will likely need 3 more units by am admit patient to [facility] for close monitoring. gi consult Nothing by mouth Tylenol when necessary for headaches. Patient was explained of management of migraine headaches with prophylactic medications and rescue medications. Follow-up with PCP for long-term treatment DVT prophylaxis with SCD. Discussed Condition With Patient, ER REPAIRER AND CHECKER Physician Certification 2 Midnight Certification Type: Admission for Inpatient Services Order for Inpatient Services The services are ordered in accordance with Medicare regulations or non- Medicare payer requirements, as applicable. In the case of services not specified as inpatient-only, they are appropriately provided as inpatient services in accordance with the 2-midnight benchmark. Estimated LOS (days): 2 days is the estimated time the patient will need to remain in the hospital, assuming treatment plan goals are met and no additional complications. Post-Hospital Plan: Home Hermila Gerber MD Feb 17, 2017 17:16
[2017-02-17] MEDS ORDERED: ACETAMINOPHEN 325 MG TAB PO PRN (17:30)
[2017-02-17] MEDS ORDERED: SODIUM CHLORIDE 0.9% FLUSH 10 ML FLUSH IV FLUSH SCH (21:00)
[2017-02-18] VITALS (14 sets, daily range): BP systolic 94–120; BP diastolic 52–76; PULSE 84–106; RESP 14–20; TEMP 97.5–98.8; O2SAT 95–99
[2017-02-18] MEDS: SODIUM CHLOR 0.9% 1000 ML INJ 1,000 ML IV SCH ×3 (03:30→23:30)
[2017-02-18 07:05] LABS: AUTOMATED NEUTROPHIL # 4.4 TH/MM3 (1.8-7.7); BASOPHIL # 0.1 TH/MM3 (0-0.2); EOSINOPHIL # 0.2 TH/MM3 (0-0.4); EOSINOPHIL % 2.6 % (0.0-4.0); LYMPH % 21.2 % (9.0-44.0); LYMPHOCYTE # 1.3 TH/MM3 (1.0-4.8); MEAN CELL VOLUME 84.7 FL (80.0-100.0); MEAN CORPUSCULAR HEMOGLOBIN 29.2 PG (27.0-34.0); MEAN CORPUSCULAR HGB CONC 34.5 % (32.0-36.0); MEAN PLATELET VOLUME 9.4 FL (7.0-11.0); MONOCYTE # 0.4 TH/MM3 (0-0.9); NEUT % 69.2 % (16.0-70.0); PLATELET COUNT 163 TH/MM3 (150-450); RED BLOOD COUNT 2.28 MIL/MM3 (4.00-5.30)
[2017-02-18 07:22] LABS: HEMATOCRIT 19.3 % (35.0-46.0); HEMOGLOBIN 6.6 GM/DL (11.6-15.3); WHITE BLOOD COUNT 6.4 TH/MM3 (4.0-11.0)
[2017-02-18 07:29] LABS: BICARBONATE 27.1 MEQ/L (21.0-32.0); CALCIUM 6.9 MG/DL (8.5-10.1); CREATININE 0.62 MG/DL (0.50-1.00)
[2017-02-18 08:01] LABS: CALCIUM-PROTEIN CORRECTED 8.6 MG/DL (8.5-10.1)
[2017-02-18] MEDS ORDERED: FUROSEMIDE 20 MG/2 ML VIAL IV PUSH ONE (09:00)
[2017-02-18] MEDS ORDERED: diphenhydrAMINE HCL 25 MG CAP PO PRN (09:00)
[2017-02-18] MEDS ORDERED: SODIUM CHLOR 0.9% 250 ML INJ 250 ML IV ONE (09:00)
[2017-02-18] MEDS ORDERED: ACETAMINOPHEN 325 MG TAB PO PRN ×4 (09:00→12:00)
--- NOTE | 2017-02-18 10:54 | HHI.PR ---
Subjective Remarks Patient reported that she was admitted recently to our hospital for GI bleed with bright red blood per rectum. Medical records reviewed. On February 14, 2017, patient underwent colonoscopy for this acute GI bleed. She also has had bleeding scan done at that time. She has had recent EGD as well. All studies did not see any active bleeding. Patient reports that her GI doctor Was suspecting diverticular bleed as she has had multiple diverticula . She was discharged home and was told to return back to hospital immediately if she has further episodes of bleeding. Patient reports that since discharge home on February 14, 2017, she was feeling somewhat lightheaded and dizziness. She kept drinking large amounts of Gatorade and water at home to keep herself hydrated. However she started feeling severe palpitations, feeling of heart pounding, dizziness, near syncopal episodes. She states she also continued to have bleeding every time she goes to make bowel movements. Only known that the blood is somewhat little bit darker than her previous blood. She also reports of shortness of breath on movement and getting up. She stated she felt like horse is kicking on her head for migraine headaches as well. While in emergency room, patient has had guaiac done which was positive. Her blood work also revealed hemoglobin of 6.8. Her baseline is 12-14. 1-02 Patient was transfused 2 units of packed red blood cells yesterday evening -- hemoglobin still was 6.6 We'll transfuse 3 more units of packed red blood cells today have discussed with Dr. Rascon gastroenterology will defer to him for any other systemic I discussed with patient and RN Still having bright red versus dark melanotic stools with BOWEL MOVEMENTS Objective Vitals Vital Signs Date Time Temp Pulse Resp B/P (MAP) Pulse Ox O2 Delivery O2 Flow Rate FiO2 02/18/17 05:00 92 16 94/52 (66) 99 02/18/17 03:00 91 16 99/65 (76) 96 02/18/17 03:00 92 02/18/17 02:00 103 20 99/65 98 02/18/17 00:00 97 02/18/17 00:00 98.0 93 14 116/62 (80) 95 02/18/17 00:00 98.0 95 14 116/62 98 02/17/17 23:04 97.9 103 16 113/60 97 02/17/17 22:45 97 16 113/67 96 02/17/17 22:32 98.4 91 16 115/69 98 02/17/17 22:00 89 02/17/17 20:11 104 18 113/64 (80) 02/17/17 20:09 02/17/17 19:15 99.4 107 16 106/58 97 02/17/17 19:00 99.0 114 16 115/59 99 02/17/17 18:25 98.9 114 16 123/61 98 02/17/17 18:22 98.9 113 16 123/61 (81) 98 Room Air 02/17/17 15:21 20 02/17/17 15:20 113 20 101/55 (70) 127 20 102/60 (74) 152 20 91/51 (64) 02/17/17 14:45 98.9 140 18 115/60 (78) 100 I/O 02/17/17 02/17/17 02/17/17 02/18/17 02/18/17 02/18/17 07:00 15:00 23:00 07:00 15:00 23:00 Intake Total 1555 ml 650 ml Balance 1555 ml 650 ml Intake Oral 200 ml IV Total 1000 ml Packed Cells 400 ml 400 ml Blood Product IV Normal Saline Flush 155 ml 50 ml # Voids 2 # Bowel Movements 4 6 Result Diagram: 02/18/17 0554 02/18/17 0554 Other Results Laboratory Tests Test 02/17/17 15:19 02/18/17 05:54 White Blood Count 8.2 TH/MM3 6.4 TH/MM3 Red Blood Count 2.27 MIL/MM3 2.28 MIL/MM3 Hemoglobin 6.8 GM/DL 6.6 GM/DL Hematocrit 19.9 % 19.3 % Mean Corpuscular Volume 87.5 FL 84.7 FL Mean Corpuscular Hemoglobin 29.9 PG 29.2 PG Mean Corpuscular Hemoglobin Concent 34.1 % 34.5 % Red Cell Distribution Width 15.1 % 15.0 % Platelet Count 256 TH/MM3 163 TH/MM3 Mean Platelet Volume 9.4 FL 9.4 FL Neutrophils (%) (Auto) 61.5 % 69.2 % Lymphocytes (%) (Auto) 28.3 % 21.2 % Monocytes (%) (Auto) 6.6 % 6.0 % Eosinophils (%) (Auto) 2.7 % 2.6 % Basophils (%) (Auto) 0.9 % 1.0 % Neutrophils # (Auto) 5.1 TH/MM3 4.4 TH/MM3 Lymphocytes # (Auto) 2.3 TH/MM3 1.3 TH/MM3 Monocytes # (Auto) 0.5 TH/MM3 0.4 TH/MM3 Eosinophils # (Auto) 0.2 TH/MM3 0.2 TH/MM3 Basophils # (Auto) 0.1 TH/MM3 0.1 TH/MM3 CBC Comment DIFF FINAL DIFF FINAL Differential Comment Prothrombin Time 9.6 SEC Prothromb Time International Ratio 0.9 RATIO Activated Partial Thromboplast Time 20.5 SEC Blood Urea Nitrogen 15 MG/DL 16 MG/DL Creatinine 0.72 MG/DL 0.62 MG/DL Random Glucose 108 MG/DL 106 MG/DL Total Protein 5.5 GM/DL 4.0 GM/DL Albumin 2.8 GM/DL Calcium Level 7.9 MG/DL 6.9 MG/DL Alkaline Phosphatase 50 U/L Aspartate Amino Transf (AST/SGOT) 14 U/L Alanine Aminotransferase (ALT/SGPT) 16 U/L Total Bilirubin 0.1 MG/DL Sodium Level 142 MEQ/L 143 MEQ/L Potassium Level 3.6 MEQ/L 3.7 MEQ/L Chloride Level 108 MEQ/L 110 MEQ/L Carbon Dioxide Level 29.0 MEQ/L 27.1 MEQ/L Anion Gap 5 MEQ/L 6 MEQ/L Estimat Glomerular Filtration Rate 83 ML/MIN 98 ML/MIN Protein Corrected Calcium 8.6 MG/DL Objective Remarks GENERAL: Awake alert oriented talkative and cooperative appears stated age SKIN: Warm and dry. HEAD: Atraumatic. Normocephalic. EYES: Pupils equal and round. No scleral icterus. No injection or drainage. Extraocular muscles intact ENT: No nasal bleeding or discharge. Mucous membranes pink and moist. Tongue Is midline NECK: Trachea midline. No JVD. Supple CARDIOVASCULAR: Regular rate and rhythm. S1 and S2 no S3 or S4 no heave or thrill or rub or gallop RESPIRATORY: No accessory muscle use. Clear to auscultation. Breath sounds equal bilaterally. GASTROINTESTINAL: Abdomen soft, non-tender, nondistended. Hepatic and splenic margins not palpable. MUSCULOSKELETAL: Extremities without clubbing, cyanosis, or edema. No obvious deformities. NEUROLOGICAL: Awake and alert. No obvious cranial nerve deficits. Motor grossly within normal limits. Five out of 5 muscle strength in the arms and legs. Normal speech. PSYCHIATRIC: Appropriate mood and affect; insight and judgment normal. Medications and IVs Current Medications Sodium Chloride 1,000 ml @ 999 mls/hr BOLUS ONCE IV Last administered on at 15:36; Start 02/17/17 at 15:30; Stop 02/17/17 at 16:30; Status DC Sodium Chloride 250 ml @ 15 mls/hr ONCE ONCE IV Last administered on at 18:59; Start 02/17/17 at 15:45; Stop 02/18/17 at 08:24; Status DC Sodium Chloride 1,000 ml @ 100 mls/hr Q10H IV Last administered on 02/17/17at 02 :00; Start 02/17/17 at 17:30 Sodium Chloride (NS Flush) 2 ml UNSCH PRN IV FLUSH FLUSH AFTER USING IV ACCESS ; Start 02/17/17 at 17:15 Sodium Chloride (NS Flush) 2 ml BID IV FLUSH ; Start 02/17/17 at 21:00 Naloxone HCl (Narcan Inj) 0.4 mg UNSCH PRN IV PUSH SEE LABEL COMMENTS; Start at 17:15 Acetaminophen (Tylenol) 650 mg Q4H PRN PO headaches/ pain Last administered on 02/17/17at 20:26; Start 02/17/17 at 17:30 Sodium Chloride 250 ml @ 15 mls/hr ONCE ONCE IV ; Start 02/18/17 at 09:00; Stop 02/19/17 at 01:39 Acetaminophen (Tylenol) 650 mg Q4H PRN PO SEE LABEL COMMENTS; Start 02/18/17 at 09:00 Diphenhydramine HCl (Benadryl) 25 mg Q4H PRN PO SEE LABEL COMMENTS; Start at 09:00 Furosemide (Lasix Inj) 20 mg ONCE ONCE IV PUSH ; Start 02/18/17 at 09:00; Stop 02/18/17 at 09:02; Status DC A/P Assessment and Plan Impression: Symptomatic anemia secondary to acute blood loss anemia--we'll transfuse 3 more units today Lower GI bleed. Likely diverticular bleed.--We'll transfuse 3 more units today Recent history of GI bleed on February 12, 2017. Was Discharge home on February 14, 2017. Workup did not reveal any active bleed. History of diverticulosis History of migraine headaches/tension headaches. Was previously taking Excedrin. Has not been taking it since she had GI bleed. Plan: iv fluid bolus 3 units prbc now will likely need more admit patient to [facility] for close monitoring. gi consult Nothing by mouth Tylenol when necessary for headaches. Patient was explained of management of migraine headaches with prophylactic medications and rescue medications. Follow-up with PCP for long-term treatment DVT prophylaxis with SCD. A.m. labs Discharge Planning Pending stabilization of her hemoglobin Holger Sunshine DO Feb 18, 2017 10:54
[2017-02-18] MEDS ORDERED: MAGNESIUM HYDROXIDE SUSP 30 ML CUP PO PRN (11:00)
[2017-02-18] MEDS ORDERED: MORPHINE SULFATE 2 MG/ML INJ IV PUSH PRN ×2 (11:00)
[2017-02-18] MEDS ORDERED: METOCLOPRAMIDE HCL 10 MG/2 ML VIAL IV PUSH PRN (11:00)
[2017-02-18] MEDS ORDERED: SODIUM CHLORIDE 0.9% FLUSH 10 ML FLUSH IV FLUSH PRN (11:00)
[2017-02-18] MEDS ORDERED: oxyCODONE/ACETAMINOPHEN 10 MG/325 MG TAB PO PRN (11:00)
[2017-02-18] MEDS ORDERED: BISACODYL 10 MG SUPP RECTAL PRN (11:00)
[2017-02-18] MEDS ORDERED: ONDANSETRON HCL 4 MG/2 ML VIAL IVP PRN (11:00)
[2017-02-18] MEDS ORDERED: SENNOSIDES 8.6 MG TAB PO PRN (11:00)
[2017-02-18] MEDS ORDERED: ZOLPIDEM TARTRATE 5 MG TAB PO PRN (11:00)
[2017-02-18] MEDS ORDERED: LACTULOSE SYRUP 20 GM/30 ML CUP PO PRN (11:00)
[2017-02-18] MEDS ORDERED: oxyCODONE/ACETAMINOPHEN 5 MG/325 MG TAB PO PRN (11:00)
[2017-02-18] MEDS ORDERED: NALOXONE HCL 0.4 MG/ML AMP IV PUSH PRN (11:00)
--- NOTE | 2017-02-18 11:33 | MB ---
cc: SHAWN VALLES DATE OF CONSULTATION 02/18/2017 DATE OF 1955 REASON FOR CONSULTATION GI bleed. HISTORY OF PRESENT ILLNESS this is a very pleasant 61-year-old female recently admitted to the hospital for rectal bleeding, suspected to be diverticular in nature. She was transfused one unit of packed RBCs during that admission. Due to persistent bleeding she underwent a tagged bleeding scan which was negative for active bleeding. She was then bowel prepped and underwent an EGD and colonoscopy which was significant for mild gastritis and moderate diverticulosis predominantly in the sigmoid colon as well as scattered diverticulosis throughout the colon. No active bleeding sites were noted despite significant irrigation. She was subsequently discharged in stable condition. She called the on-call service on Friday complaining of tachycardia and shortness of breath at rest; therefore, she was advised to come back to the emergency room. She went to the ER and was noted to be significantly anemic with a hemoglobin was 6.8. She is transfused two units packed RBCs overnight and had improvement of her symptoms. However, at about 3:00 in the morning she had another large bowel movement which she states was bloody in nature. Due to this she again feels weak and her repeat hemoglobin despite transfusion of two units is 6.6 today. PAST MEDICAL HISTORY Diverticulosis. PAST SURGICAL HISTORY 1. Hysterectomy. 2. . 3. Varicose vein ligation. MEDICATIONS Please see EMR for complete list. ALLERGIES KIWI. FAMILY HISTORY Sister with history of breast cancer. No GI malignancy. SOCIAL HISTORY No tobacco use. Drinks alcohol rarely. Denies any tobacco abuse. REVIEW OF SYSTEMS A 12-point review of systems was obtained by me and shown to be negative or noncontributory except as mentioned in the HPI. PHYSICAL EXAMINATION VITAL SIGNS: Temperature 98.3, heart rate 106, respirations 18, blood pressure 112/65. O2 sat 99% on room air. GENERAL: Alert and oriented, in no acute distress. HEENT: Normocephalic. Pupils equal, round, reactive to light. Oral mucosa dry but pink. NECK: Supple, nontender. No carotid bruits. No JVD. No thyromegaly. CARDIOVASCULAR: Tachycardic, regular rhythm. PULMONARY: Clear to auscultation bilaterally. ABDOMEN: Soft, nontender. No rebound appreciated. No ecchymosis. GENITOURINARY: No CV angle tenderness. MUSCULOSKELETAL: Equal strength in the upper and lower extremities. NEUROLOGIC: Alert and oriented. No focal deficits. PSYCHIATRIC: Cooperative. Appropriate mood and affect. LABORATORY WBC 6.4, hemoglobin 6.6, MCV 84.7, platelets 163. Sodium 140, potassium 3.7, chloride 110, bicarb 27, BUN 16, creatinine 0.62. INR 0.9. IMPRESSION 1. Acute symptomatic anemia. 2. Rectal bleeding, suspected secondary to diverticular bleeding which has been intermittent but persistent. 3. Acute anemia of blood loss status post transfusion. RECOMMENDATIONS 1. Agree with transfusion to alleviate patient's symptoms. 2. Will reorder tagged bleeding scan to help discern the bleeding source. If tagged bleeding scan is positive then I recommend interventional radiology for angiography to evaluate and possibly embolize. The patient just underwent EGD and a colonoscopy without any active bleeding source found. Therefore, I do not believe repeating either of the procedures will be beneficial at this time, and given her symptomatic anemia I do not believe having her undergo bowel prep would be reasonable for her at this point. Thank you for allowing me to participate in the care of this patient. I will be following with you and make recommendations as per the patient's clinic course. MD MAXX Salomon/PARAG /10:41 AM /10:59 AM
[2017-02-18] MEDS: PANTOPRAZOLE SODIUM 40 MG VIAL IV PUSH SCH (12:00)
--- NOTE | 2017-02-18 14:46 | RADRPT ---
EXAM DATE/TIME: 02/18/2017 12:21 [facility] COMPARISON: GI BLEEDING SCAN, February 12, 2017, 16:00. INDICATIONS : Rectal bleeding. DOSE: 21.8 mCi Tc99m Ultratag labeled red blood cells IV IMAGIN hrs MEDICAL HISTORY : None SURGICAL HISTORY : Hysterectomy. section. ENCOUNTER: Subsequent ACUITY: 1 week PAIN SCALE: 0/10 LOCATION: lower quadrant TECHNIQUE: Following the modified in vitro labeling of autologous red cells, dynamic continuous images were acqu ired for the specified interval. FINDINGS: BIODISTRIBUTION: There is a very good labeling of red cells without significant uptake in the gastric wall. There is good delineation of the blood pool of the spleen and abdominal vessels. BLEEDING: No episodes of active GI bleeding are observed during specified interval of continuous observation. CONCLUSION: Negative GI bleeding scan Efrain Morin MD on February 18, 2017 at 14:43 Board Certified Radiologist. This report was verified electronically.
--- NOTE | 2017-02-18 18:03 | EKG ---
Date Performed: 02/17/2017 Time Performed: 15:49:54 PTAGE: 61 years EKG: SINUS TACHYCARDIA NONSPECIFIC ST & T-WAVE ABNORMALITY ABNORMAL RHYTHM ECG PREVIOUS TRACING : 02/14/2017 09.07 Compared to prior tracing no significant change DOCTOR: Arun Fox Interpretating Date/Time 02/18/2017 18:02:34
[2017-02-18] MEDS: DOCUSATE SODIUM 50 MG/SENNA 8.6 MG TAB PO SCH (21:00)
[2017-02-18] MEDS: SODIUM CHLORIDE 0.9% FLUSH 10 ML FLUSH IV FLUSH SCH (21:00)
[2017-02-19] VITALS (12 sets, daily range): BP systolic 89–126; BP diastolic 49–71; PULSE 81–122; RESP 14–18; TEMP 97.4–98.4; O2SAT 95–100
[2017-02-19] MEDS: PANTOPRAZOLE SODIUM 40 MG VIAL IV PUSH SCH ×3 (00:47→22:53)
[2017-02-19 07:05] LABS: AUTOMATED NEUTROPHIL # 4.6 TH/MM3 (1.8-7.7); BASOPHIL # 0.1 TH/MM3 (0-0.2); BASOPHIL % 0.8 % (0.0-2.0); EOSINOPHIL # 0.3 TH/MM3 (0-0.4); EOSINOPHIL % 3.8 % (0.0-4.0); HEMATOCRIT 27.4 % (35.0-46.0); HEMOGLOBIN 9.5 GM/DL (11.6-15.3); LYMPH % 24.2 % (9.0-44.0); LYMPHOCYTE # 1.7 TH/MM3 (1.0-4.8); MEAN CELL VOLUME 85.9 FL (80.0-100.0); MEAN CORPUSCULAR HEMOGLOBIN 29.8 PG (27.0-34.0); MEAN CORPUSCULAR HGB CONC 34.7 % (32.0-36.0); MEAN PLATELET VOLUME 9.7 FL (7.0-11.0); MONO % 5.6 % (0.0-8.0); MONOCYTE # 0.4 TH/MM3 (0-0.9); NEUT % 65.6 % (16.0-70.0); PLATELET COUNT 162 TH/MM3 (150-450); RED BLOOD COUNT 3.19 MIL/MM3 (4.00-5.30); RED CELL DISTRIBUTION WIDTH 15.5 % (11.6-17.2); WHITE BLOOD COUNT 6.9 TH/MM3 (4.0-11.0)
[2017-02-19] MEDS: SODIUM CHLOR 0.9% 1000 ML INJ 1,000 ML IV SCH ×2 (07:21→18:35)
[2017-02-19 07:24] LABS: ALBUMIN 2.2 GM/DL (3.4-5.0); AST (GOT) 17 U/L (15-37); BICARBONATE 24.2 MEQ/L (21.0-32.0); BLOOD UREA NITROGEN 14 MG/DL (7-18); CALCIUM 7.4 MG/DL (8.5-10.1); CHLORIDE 109 MEQ/L (98-107); CREATININE 0.71 MG/DL (0.50-1.00); GLOMERULAR FILTRATION RATE 84 ML/MIN (>89); GLUCOSE,RANDOM 112 MG/DL (74-106); SODIUM (NA) 142 MEQ/L (136-145)
[2017-02-19 07:32] LABS: ALKALINE PHOSPHATASE 39 U/L (45-117); ALT (GPT) 13 U/L (10-53); FREE T4 1.17 NG/DL (0.76-1.46); PHOSPHORUS 2.6 MG/DL (2.5-4.9); TOTAL BILIRUBIN ADULT 0.6 MG/DL (0.2-1.0); TOTAL PROTEIN 4.4 GM/DL (6.4-8.2)
[2017-02-19] MEDS: SODIUM CHLORIDE 0.9% FLUSH 10 ML FLUSH IV FLUSH SCH ×2 (07:46→21:00)
[2017-02-19] MEDS: DOCUSATE SODIUM 50 MG/SENNA 8.6 MG TAB PO SCH ×2 (09:00→21:00)
--- NOTE | 2017-02-19 10:29 | HHI.GIFU ---
Subjective Remarks alert NAD no active GIB at this time HB 9.5 Bleeding scan x 2 negative c scope also without active bleeding multiple tics left and right colon Objective Vitals I&O Vital Signs Date Time Temp Pulse Resp B/P (MAP) Pulse Ox O2 Delivery O2 Flow Rate FiO2 02/19/17 07:20 106 104/55 (71) 02/19/17 04:58 97.5 91 16 89/49 (62) 96 02/19/17 04:14 90 02/19/17 00:43 99 02/19/17 00:19 98.4 81 18 116/71 98 02/18/17 22:52 84 02/18/17 21:14 97.5 90 17 114/71 99 02/18/17 20:09 98.1 86 18 120/76 97 02/18/17 17:42 90 16 101/60 96 02/18/17 16:51 98.8 93 18 118/63 98 02/18/17 15:55 98.5 97 16 117/69 (85) 97 02/18/17 11:30 98.8 102 16 107/58 (74) 02/18/17 11:00 95 16 107/58 99 02/18/17 10:38 98.3 106 18 112/65 99 I/O 02/18/17 02/18/17 02/18/17 02/19/17 02/19/17 02/19/17 07:00 15:00 23:00 07:00 15:00 23:00 Intake Total 650 ml 800 ml 400 ml Output Total 250 ml Balance 650 ml 550 ml 400 ml Intake Oral 200 ml 0 ml Packed Cells 400 ml 800 ml 400 ml Blood Product IV Normal Saline Flush 50 ml Output Urine Total 250 ml # Voids 2 6 1 # Bowel Movements 4 6 3 Laboratory Laboratory Tests Test 02/19/17 05:00 White Blood Count 6.9 Red Blood Count 3.19 Hemoglobin 9.5 Hematocrit 27.4 Mean Corpuscular Volume 85.9 Mean Corpuscular Hemoglobin 29.8 Mean Corpuscular Hemoglobin Concent 34.7 Red Cell Distribution Width 15.5 Platelet Count 162 Mean Platelet Volume 9.7 Neutrophils (%) (Auto) 65.6 Lymphocytes (%) (Auto) 24.2 Monocytes (%) (Auto) 5.6 Eosinophils (%) (Auto) 3.8 Basophils (%) (Auto) 0.8 Neutrophils # (Auto) 4.6 Lymphocytes # (Auto) 1.7 Monocytes # (Auto) 0.4 Eosinophils # (Auto) 0.3 Basophils # (Auto) 0.1 CBC Comment DIFF FINAL Differential Comment Blood Urea Nitrogen 14 Creatinine 0.71 Random Glucose 112 Total Protein 4.4 Albumin 2.2 Calcium Level 7.4 Phosphorus Level 2.6 Magnesium Level 2.0 Alkaline Phosphatase 39 Aspartate Amino Transf (AST/SGOT) 17 Alanine Aminotransferase (ALT/SGPT) 13 Total Bilirubin 0.6 Sodium Level 142 Potassium Level 3.4 Chloride Level 109 Carbon Dioxide Level 24.2 Anion Gap 9 Estimat Glomerular Filtration Rate 84 Protein Corrected Calcium 9.0 Free Thyroxine 1.17 Thyroid Stimulating Hormone 3rd Gen 2.320 Imaging Last 48 hours Impressions GI Bleed Scan Nuclear Medicine 02/18/17 0000 Signed Impressions: Service Date/Time: Saturday, February 18, 2017 12:21 - CONCLUSION: Negative GI bleeding scan Efrain Morin MD Physical Exam HEENT: Pupils round and reactive to light; normocephalic; atraumatic; no jaundice. Throat is clear. NECK: Neck is supple, no JVD, no lymphadenopathy. CHEST: Chest is clear to auscultation and percussion. CARDIAC: Regular rate and rhythm with no murmur gallop or rubs. ABDOMEN: Soft, nondistended, nontender; no hepatosplenomegaly; bowel sounds are present in all four quadrants. EXTREMITIES: No clubbing, cyanosis, or edema. SKIN: Normal; no rash; no jaundice. Assessment and Plan Assessment: (1) Diverticula of colon ICD Codes: K57.30 - Diverticulosis of large intestine without perforation or abscess without bleeding (2) GI (gastrointestinal bleed) ICD Codes: K92.2 - Gastrointestinal hemorrhage, unspecified Plan discussed case with pt... most likely source is diverticular bleed ut unknown exact site due to left and right colonic tics and negative bleed scans x 2 ...continue to observe..if rebleeding occurs obtain stat bleed scan again and if positive proceed w angiography....Hold any surgical approach for now Problem Qualifiers (1) GI (gastrointestinal bleed): Qualified Codes: K92.2 - Gastrointestinal hemorrhage, unspecified Devaughn Kamara MD Feb 19, 2017 10:29
[2017-02-19 16:31] LABS: HEMOGLOBIN A1C 5.6 % (4.3-6.0)
--- NOTE | 2017-02-19 18:40 | HHI.PR ---
Subjective Remarks Pt is still feeling weak this a.m., had dark loose stool at 4am. She had a GI bleed last week, which spontaneously resolved, this is a recurrence, but work up thus far has showed no obvious source. She is an employee with our [employer] Objective Vitals Vital Signs Date Time Temp Pulse Resp B/P (MAP) Pulse Ox O2 Delivery O2 Flow Rate FiO2 02/19/17 15:54 97.4 122 16 103/69 (80) 100 02/19/17 12:28 97.9 107 16 126/68 (87) 95 02/19/17 08:29 97.6 98 16 105/58 (74) 97 02/19/17 07:20 106 104/55 (71) 02/19/17 04:58 97.5 91 16 89/49 (62) 96 02/19/17 04:14 90 02/19/17 00:43 99 02/19/17 00:19 98.4 81 18 116/71 98 02/18/17 22:52 84 02/18/17 21:14 97.5 90 17 114/71 99 02/18/17 20:09 98.1 86 18 120/76 97 I/O 02/18/17 02/18/17 02/18/17 02/19/17 02/19/17 02/19/17 07:00 15:00 23:00 07:00 15:00 23:00 Intake Total 650 ml 800 ml 400 ml Output Total 250 ml Balance 650 ml 550 ml 400 ml Intake Oral 200 ml 0 ml Packed Cells 400 ml 800 ml 400 ml Blood Product IV Normal Saline Flush 50 ml Output Urine Total 250 ml # Voids 2 6 1 # Bowel Movements 4 6 3 Result Diagram: 02/19/17 0500 02/19/17 0500 Objective Remarks GENERAL: Well-nourished, well-developed patient. SKIN: Warm and dry. HEAD: Normocephalic. EYES: No scleral icterus. No injection or drainage. NECK: Supple, trachea midline. No JVD or lymphadenopathy. CARDIOVASCULAR: Tachycardia without murmurs, gallops, or rubs. RESPIRATORY: Breath sounds equal bilaterally. No accessory muscle use. GASTROINTESTINAL: Abdomen soft, non-tender, nondistended. MUSCULOSKELETAL: No cyanosis, or edema. BACK: Nontender without obvious deformity. No CVA tenderness. A/P Problem List: (1) GI (gastrointestinal bleed) ICD Code: K92.2 - Gastrointestinal hemorrhage, unspecified (2) Diverticula of colon ICD Code: K57.30 - Diverticulosis of large intestine without perforation or abscess without bleeding (3) Symptomatic anemia ICD Code: D64.9 - Anemia, unspecified Assessment and Plan GI Bleed w/ Symptomatic Anemia Bleeding scan shows no source to point to, likely diverticular She has received 3 units of PRBC She has stopped her previous use of Excedrin following first episode of GI bleed last week Will recheck H&H tonight, then again in the a.m., transfuse again if indicated GI consulted, no surgical intervention recommended at this point Clear Liquid Diet DVT Prophylaxis SCD hose given active bleed Discharge Planning Once H&H stable and no active bleeding Problem Qualifiers (1) GI (gastrointestinal bleed): Qualified Codes: K92.2 - Gastrointestinal hemorrhage, unspecified Deepak Samaniego MD Feb 19, 2017 6:40 pm
[2017-02-19 21:26] LABS: AUTOMATED NEUTROPHIL # 5.1 TH/MM3 (1.8-7.7); BASOPHIL % 0.6 % (0.0-2.0); EOSINOPHIL # 0.1 TH/MM3 (0-0.4); EOSINOPHIL % 1.9 % (0.0-4.0); HEMATOCRIT 25.8 % (35.0-46.0); HEMOGLOBIN 8.6 GM/DL (11.6-15.3); LYMPH % 19.7 % (9.0-44.0); LYMPHOCYTE # 1.4 TH/MM3 (1.0-4.8); MEAN CELL VOLUME 86.7 FL (80.0-100.0); MEAN CORPUSCULAR HEMOGLOBIN 28.9 PG (27.0-34.0); MEAN CORPUSCULAR HGB CONC 33.3 % (32.0-36.0); MEAN PLATELET VOLUME 9.4 FL (7.0-11.0); MONO % 5.3 % (0.0-8.0); MONOCYTE # 0.4 TH/MM3 (0-0.9); NEUT % 72.5 % (16.0-70.0); PLATELET COUNT 190 TH/MM3 (150-450); RED BLOOD COUNT 2.98 MIL/MM3 (4.00-5.30); RED CELL DISTRIBUTION WIDTH 15.7 % (11.6-17.2)
[2017-02-20] VITALS (14 sets, daily range): BP systolic 110–130; BP diastolic 60–79; PULSE 60–103; RESP 14–16; TEMP 97.6–98.8; O2SAT 98–100
[2017-02-20] MEDS: SODIUM CHLOR 0.9% 1000 ML INJ 1,000 ML IV SCH ×2 (03:04→15:30)
[2017-02-20 05:23] LABS: AUTOMATED NEUTROPHIL # 2.7 TH/MM3 (1.8-7.7); BASOPHIL % 0.8 % (0.0-2.0); EOSINOPHIL # 0.2 TH/MM3 (0-0.4); EOSINOPHIL % 3.9 % (0.0-4.0); HEMATOCRIT 22.4 % (35.0-46.0); HEMOGLOBIN 7.6 GM/DL (11.6-15.3); LYMPH % 26.6 % (9.0-44.0); LYMPHOCYTE # 1.1 TH/MM3 (1.0-4.8); MEAN CELL VOLUME 87.2 FL (80.0-100.0); MEAN CORPUSCULAR HEMOGLOBIN 29.7 PG (27.0-34.0); MEAN PLATELET VOLUME 9.1 FL (7.0-11.0); MONO % 4.8 % (0.0-8.0); MONOCYTE # 0.2 TH/MM3 (0-0.9); NEUT % 63.9 % (16.0-70.0); PLATELET COUNT 154 TH/MM3 (150-450); RED BLOOD COUNT 2.57 MIL/MM3 (4.00-5.30); WHITE BLOOD COUNT 4.2 TH/MM3 (4.0-11.0)
[2017-02-20] MEDS: SODIUM CHLORIDE 0.9% FLUSH 10 ML FLUSH IV FLUSH SCH ×2 (08:22→20:48)
[2017-02-20] MEDS: DOCUSATE SODIUM 50 MG/SENNA 8.6 MG TAB PO SCH ×2 (08:22→20:48)
--- NOTE | 2017-02-20 14:27 | HHI.GIFU ---
Subjective Remarks alert Nad no active BRBPR but passed dark?black stool NAD HB 7.6 today ? Dilutional Objective Vitals I&O Vital Signs Date Time Temp Pulse Resp B/P (MAP) Pulse Ox O2 Delivery O2 Flow Rate FiO2 02/20/17 09:35 21 02/20/17 08:15 98.6 92 16 120/79 (93) 100 02/20/17 06:00 94 02/20/17 05:00 90 02/20/17 04:00 97.7 82 14 115/67 (83) 100 02/20/17 04:00 85 02/20/17 03:00 80 02/20/17 02:00 86 02/20/17 01:00 86 02/20/17 00:00 97.8 88 14 118/67 (84) 100 02/20/17 00:00 89 02/19/17 23:00 90 02/19/17 22:00 94 02/19/17 21:00 92 02/19/17 20:00 92 02/19/17 20:00 97.4 87 14 116/68 (84) 100 02/19/17 15:54 97.4 122 16 103/69 (80) 100 I/O 02/19/17 02/19/17 02/19/17 02/20/17 02/20/17 02/20/17 07:00 15:00 23:00 07:00 15:00 23:00 Intake Total 400 ml 1240 ml 480 ml Output Total 600 ml Balance 400 ml 640 ml 480 ml Intake Oral 240 ml 480 ml IV Total 1000 ml Packed Cells 400 ml Output Urine Total 600 ml # Voids 1 3 3 # Bowel Movements 3 2 Laboratory Laboratory Tests Test 02/19/17 19:04 02/19/17 19:24 02/20/17 03:52 White Blood Count 7.0 4.2 Red Blood Count 2.98 2.57 Hemoglobin 8.6 7.6 Hematocrit 25.8 22.4 Mean Corpuscular Volume 86.7 87.2 Mean Corpuscular Hemoglobin 28.9 29.7 Mean Corpuscular Hemoglobin Concent 33.3 34.0 Red Cell Distribution Width 15.7 16.0 Platelet Count 190 154 Mean Platelet Volume 9.4 9.1 Neutrophils (%) (Auto) 72.5 63.9 Lymphocytes (%) (Auto) 19.7 26.6 Monocytes (%) (Auto) 5.3 4.8 Eosinophils (%) (Auto) 1.9 3.9 Basophils (%) (Auto) 0.6 0.8 Neutrophils # (Auto) 5.1 2.7 Lymphocytes # (Auto) 1.4 1.1 Monocytes # (Auto) 0.4 0.2 Eosinophils # (Auto) 0.1 0.2 Basophils # (Auto) 0.0 0.0 CBC Comment DIFF FINAL DIFF FINAL Differential Comment Ferritin 40 Physical Exam CHEST: Chest is clear to auscultation and percussion. CARDIAC: Regular rate and rhythm with no murmur gallop or rubs. ABDOMEN: Soft, nondistended, nontender; no hepatosplenomegaly; bowel sounds are present in all four quadrants. EXTREMITIES: No clubbing, cyanosis, or edema. SKIN: Normal; no rash; no jaundice. Assessment and Plan Assessment: (1) Diverticula of colon ICD Codes: K57.30 - Diverticulosis of large intestine without perforation or abscess without bleeding (2) GI (gastrointestinal bleed) ICD Codes: K92.2 - Gastrointestinal hemorrhage, unspecified Plan Will recheck H/H and follow advance to full liquids capsule endoscopy after d/c to ck small bowel...transfuse only if hb drops below 7 Problem Qualifiers (1) GI (gastrointestinal bleed): Qualified Codes: K92.2 - Gastrointestinal hemorrhage, unspecified Devaughn Kamara MD Feb 20, 2017 14:27
--- NOTE | 2017-02-20 15:38 | HHI.PR ---
Subjective Remarks Pt denies any abdominal pain, states that she had on BM today and it was dark tarry in color. No nausea or vomiting. Feels better today. Request disability paperwork to be filled out. Objective Vitals Vital Signs Date Time Temp Pulse Resp B/P (MAP) Pulse Ox O2 Delivery O2 Flow Rate FiO2 02/20/17 09:35 21 02/20/17 08:15 98.6 92 16 120/79 (93) 100 02/20/17 06:00 94 02/20/17 05:00 90 02/20/17 04:00 97.7 82 14 115/67 (83) 100 02/20/17 04:00 85 02/20/17 03:00 80 02/20/17 02:00 86 02/20/17 01:00 86 02/20/17 00:00 97.8 88 14 118/67 (84) 100 02/20/17 00:00 89 02/19/17 23:00 90 02/19/17 22:00 94 02/19/17 21:00 92 02/19/17 20:00 92 02/19/17 20:00 97.4 87 14 116/68 (84) 100 02/19/17 15:54 97.4 122 16 103/69 (80) 100 I/O 02/19/17 02/19/17 02/19/17 02/20/17 02/20/17 02/20/17 07:00 15:00 23:00 07:00 15:00 23:00 Intake Total 400 ml 1240 ml 480 ml Output Total 600 ml Balance 400 ml 640 ml 480 ml Intake Oral 240 ml 480 ml IV Total 1000 ml Packed Cells 400 ml Output Urine Total 600 ml # Voids 1 3 3 # Bowel Movements 3 2 Result Diagram: 02/20/17 0352 02/19/17 0500 Imaging Last Impressions GI Bleed Scan Nuclear Medicine 02/18/17 0000 Signed Impressions: Service Date/Time: Saturday, February 18, 2017 12:21 - CONCLUSION: Negative GI bleeding scan Efrain Morin MD Objective Remarks GENERAL: Well-nourished, well-developed patient. EYES: EOMI. NECK: Supple, trachea midline. CARDIOVASCULAR: appears regular, no murmurs RESPIRATORY: Breath sounds equal bilaterally. No accessory muscle use. no wheezing GASTROINTESTINAL: Abdomen soft, non-tender, nondistended. MUSCULOSKELETAL: moves extremities. A/P Problem List: (1) GI (gastrointestinal bleed) ICD Code: K92.2 - Gastrointestinal hemorrhage, unspecified (2) Diverticula of colon ICD Code: K57.30 - Diverticulosis of large intestine without perforation or abscess without bleeding (3) Symptomatic anemia ICD Code: D64.9 - Anemia, unspecified Assessment and Plan GI Bleed w/ Symptomatic Anemia Bleeding scan shows no source to point to, likely diverticular vs small bowel. Pt will need capsule endoscopy as an outpatient. She has received 5 units of PRBC. Hb 7.6 this morning. Repeat H&H ordered by GI. She has stopped her previous use of Excedrin following first episode of GI bleed last week check H&H in a.m., transfuse again if indicated if Hb<7 GI following, no surgical intervention recommended at this point diet has been advanced to full Liquid Diet DVT Prophylaxis SCD/TEDhose given active bleed Discharge Planning monitor Hb awaiting GI clearance. Problem Qualifiers (1) GI (gastrointestinal bleed): Qualified Codes: K92.2 - Gastrointestinal hemorrhage, unspecified Venus Rosario MD Feb 20, 2017 15:38
[2017-02-20 16:54] LABS: HEMATOCRIT 25.7 % (35.0-46.0); HEMOGLOBIN 8.7 GM/DL (11.6-15.3)
[2017-02-20] MEDS: PANTOPRAZOLE SODIUM 40 MG VIAL IV PUSH SCH (20:48)
[2017-02-21] MEDS: PANTOPRAZOLE SODIUM 40 MG VIAL IV PUSH SCH ×2 (02:02→11:59)
[2017-02-21 04:00] VITALS: PULSE 90; RESP 16; O2SAT 98
[2017-02-21 07:09] LABS: AUTOMATED NEUTROPHIL # 2.4 TH/MM3 (1.8-7.7); BASOPHIL % 0.9 % (0.0-2.0); EOSINOPHIL # 0.1 TH/MM3 (0-0.4); EOSINOPHIL % 3.2 % (0.0-4.0); HEMATOCRIT 23.9 % (35.0-46.0); HEMOGLOBIN 8.3 GM/DL (11.6-15.3); LYMPH % 21.9 % (9.0-44.0); LYMPHOCYTE # 0.8 TH/MM3 (1.0-4.8); MEAN CELL VOLUME 87.2 FL (80.0-100.0); MEAN CORPUSCULAR HEMOGLOBIN 30.2 PG (27.0-34.0); MEAN CORPUSCULAR HGB CONC 34.6 % (32.0-36.0); MEAN PLATELET VOLUME 8.8 FL (7.0-11.0); MONO % 5.4 % (0.0-8.0); MONOCYTE # 0.2 TH/MM3 (0-0.9); NEUT % 68.6 % (16.0-70.0); PLATELET COUNT 204 TH/MM3 (150-450); RED BLOOD COUNT 2.74 MIL/MM3 (4.00-5.30); RED CELL DISTRIBUTION WIDTH 15.9 % (11.6-17.2); WHITE BLOOD COUNT 3.6 TH/MM3 (4.0-11.0)
[2017-02-21 07:25] LABS: BICARBONATE 29.5 MEQ/L (21.0-32.0); CALCIUM 7.9 MG/DL (8.5-10.1); CREATININE 0.63 MG/DL (0.50-1.00)
[2017-02-21 09:00] VITALS: PULSE 96
[2017-02-21] MEDS: DOCUSATE SODIUM 50 MG/SENNA 8.6 MG TAB PO SCH ×2 (09:00→20:00)
[2017-02-21] MEDS: SODIUM CHLORIDE 0.9% FLUSH 10 ML FLUSH IV FLUSH SCH (09:00)
[2017-02-21 09:53] VITALS: BP 123/72; PULSE 96; RESP 20; TEMP 98.6; O2SAT 94
[2017-02-21] MEDS: SODIUM CHLOR 0.9% 1000 ML INJ 1,000 ML IV SCH ×2 (11:30)
[2017-02-21 11:56] VITALS: BP 105/70; PULSE 108; RESP 20; O2SAT 99
[2017-02-21] MEDS ORDERED: WALKER WHEELS/F1 MIS (14:22)
--- NOTE | 2017-02-21 14:56 | HHI.GIFU ---
Subjective Remarks alert NAD VSS tolerating po HB 8.7 and 8.3 dark stools but no BRBPR Objective Vitals I&O Vital Signs Date Time Temp Pulse Resp B/P (MAP) Pulse Ox O2 Delivery O2 Flow Rate FiO2 02/21/17 11:56 108 20 105/70 (82) 99 02/21/17 09:53 98.6 96 20 123/72 (89) 94 02/21/17 09:00 96 02/21/17 04:00 90 02/21/17 04:00 90 16 98 02/21/17 00:58 16 02/20/17 21:51 98 21 02/20/17 20:44 94 16 127/77 (94) 98 02/20/17 20:12 103 02/20/17 16:00 98.4 100 16 130/70 (90) 99 I/O 02/20/17 02/20/17 02/20/17 02/21/17 02/21/17 02/21/17 06:59 14:59 22:59 06:59 14:59 22:59 Intake Total 480 ml 1000 ml 1480 ml 1000 ml Output Total 500 ml Balance 480 ml 1000 ml 980 ml 1000 ml Intake Oral 480 ml 480 ml IV Total 1000 ml 1000 ml 1000 ml Output Urine Total 325 ml Stool Total 175 ml # Voids 3 1 Laboratory Laboratory Tests Test 02/20/17 16:43 02/21/17 06:15 Hemoglobin 8.7 8.3 Hematocrit 25.7 23.9 White Blood Count 3.6 Red Blood Count 2.74 Mean Corpuscular Volume 87.2 Mean Corpuscular Hemoglobin 30.2 Mean Corpuscular Hemoglobin Concent 34.6 Red Cell Distribution Width 15.9 Platelet Count 204 Mean Platelet Volume 8.8 Neutrophils (%) (Auto) 68.6 Lymphocytes (%) (Auto) 21.9 Monocytes (%) (Auto) 5.4 Eosinophils (%) (Auto) 3.2 Basophils (%) (Auto) 0.9 Neutrophils # (Auto) 2.4 Lymphocytes # (Auto) 0.8 Monocytes # (Auto) 0.2 Eosinophils # (Auto) 0.1 Basophils # (Auto) 0.0 CBC Comment DIFF FINAL Differential Comment Blood Urea Nitrogen 8 Creatinine 0.63 Random Glucose 93 Calcium Level 7.9 Sodium Level 143 Potassium Level 3.0 Chloride Level 108 Carbon Dioxide Level 29.5 Anion Gap 6 Estimat Glomerular Filtration Rate 96 Physical Exam CHEST: Chest is clear to auscultation and percussion. CARDIAC: Regular rate and rhythm with no murmur gallop or rubs. ABDOMEN: Soft, nondistended, nontender; no hepatosplenomegaly; bowel sounds are present in all four quadrants. EXTREMITIES: No clubbing, cyanosis, or edema. SKIN: Normal; no rash; no jaundice. Assessment and Plan Assessment: (1) Diverticula of colon ICD Codes: K57.30 - Diverticulosis of large intestine without perforation or abscess without bleeding (2) GI (gastrointestinal bleed) ICD Codes: K92.2 - Gastrointestinal hemorrhage, unspecified Plan advance to regular diet as tolerated... d/c ivf...hep lock IV add carafate to protonix if HB stable will d/c tomorrow with outpt f/u and capsule endoscopy as well...discussed w pt Problem Qualifiers (1) GI (gastrointestinal bleed): Qualified Codes: K92.2 - Gastrointestinal hemorrhage, unspecified Devaughn Kamara MD Feb 21, 2017 14:56
[2017-02-21] MEDS ORDERED: SODIUM CHLORIDE FLUSH PRN IV FLUSH (15:15)
--- NOTE | 2017-02-21 16:23 | HHI.PR ---
Subjective Remarks Pt feels ok. still having tary dark stools. no diarrhea. no bright bleeding. no nausea or vomiting. Objective Vitals Vital Signs Date Time Temp Pulse Resp B/P (MAP) Pulse Ox O2 Delivery O2 Flow Rate FiO2 02/21/17 11:56 108 20 105/70 (82) 99 02/21/17 09:53 98.6 96 20 123/72 (89) 94 02/21/17 09:00 96 02/21/17 04:00 90 02/21/17 04:00 90 16 98 02/21/17 00:58 16 02/20/17 21:51 98 21 02/20/17 20:44 94 16 127/77 (94) 98 02/20/17 20:12 103 I/O 02/20/17 02/20/17 02/20/17 02/21/17 02/21/17 02/21/17 07:00 15:00 23:00 07:00 15:00 23:00 Intake Total 480 ml 1000 ml 1480 ml 1000 ml Output Total 500 ml Balance 480 ml 1000 ml 980 ml 1000 ml Intake Oral 480 ml 480 ml IV Total 1000 ml 1000 ml 1000 ml Output Urine Total 325 ml Stool Total 175 ml # Voids 3 1 Result Diagram: 02/21/17 0615 02/21/17 0615 Imaging Last Impressions GI Bleed Scan Nuclear Medicine 02/18/17 0000 Signed Impressions: Service Date/Time: Saturday, February 18, 2017 12:21 - CONCLUSION: Negative GI bleeding scan Efrain Morin MD Objective Remarks GENERAL: Well-nourished, well-developed patient. EYES: EOMI. NECK: Supple, trachea midline. CARDIOVASCULAR: appears regular, no murmurs RESPIRATORY: Breath sounds equal bilaterally. No accessory muscle use. no wheezing GASTROINTESTINAL: Abdomen soft, non-tender, nondistended. MUSCULOSKELETAL: moves extremities. A/P Problem List: (1) GI (gastrointestinal bleed) ICD Code: K92.2 - Gastrointestinal hemorrhage, unspecified (2) Diverticula of colon ICD Code: K57.30 - Diverticulosis of large intestine without perforation or abscess without bleeding (3) Symptomatic anemia ICD Code: D64.9 - Anemia, unspecified Assessment and Plan GI Bleed w/ Symptomatic Anemia Bleeding scan shows no source to point to, likely diverticular vs small bowel. Pt will need capsule endoscopy as an outpatient. She has received 5 units of PRBC. Hb 8.3 this morning. continue to monitor closely. She has stopped her previous use of Excedrin following first episode of GI bleed last week check H&H in a.m., transfuse again if indicated if Hb<7 GI following, no surgical intervention recommended at this point diet has been advanced to a regular Diet DVT Prophylaxis SCD/TEDhose given active bleed Discharge Planning anticipate d/c tomorrow if Hb stable and cleared by GI. awaiting GI clearance. Disability paperwork filled out for patient. She will a capsule endoscopy as an outpatient. Pt will need GI clearance to return to work. Problem Qualifiers (1) GI (gastrointestinal bleed): Qualified Codes: K92.2 - Gastrointestinal hemorrhage, unspecified Venus Rosario MD Feb 21, 2017 16:23
[2017-02-21] MEDS: SUCRALFATE 1 GM TAB PO SCH (17:12)
[2017-02-21 19:25] VITALS: BP 120/80; PULSE 105; RESP 18; TEMP 97.6; O2SAT 96
[2017-02-21 19:55] VITALS: BP 117/65; PULSE 93; RESP 16; O2SAT 100
[2017-02-21] MEDS: SODIUM CHLORIDE FLUSH BID IV FLUSH SCH (21:00)
[2017-02-22 00:08] VITALS: PULSE 79
[2017-02-22 03:48] VITALS: PULSE 81
[2017-02-22 06:55] LABS: HEMATOCRIT 24.1 % (35.0-46.0); HEMOGLOBIN 8.1 GM/DL (11.6-15.3)
[2017-02-22 07:00] VITALS: PULSE 84
[2017-02-22 07:57] VITALS: BP 128/73; PULSE 102; RESP 18; TEMP 98.3; O2SAT 97
[2017-02-22] MEDS: SODIUM CHLORIDE FLUSH BID IV FLUSH SCH (08:01)
[2017-02-22] MEDS: SUCRALFATE 1 GM TAB PO SCH ×3 (08:01→10:36)
[2017-02-22] MEDS: DOCUSATE SODIUM 50 MG/SENNA 8.6 MG TAB PO SCH (08:01)
[2017-02-22] MEDS ORDERED: PANTOPRAZOLE SOD 40 MG DELAYED RELEASE TAB PO SCH (09:00)
--- NOTE | 2017-02-22 11:07 | HHI.GIFU ---
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 Objective Vitals I&O Vital Signs Date Time Temp Pulse Resp B/P (MAP) Pulse Ox O2 Delivery O2 Flow Rate FiO2 02/22/17 07:57 98.3 102 18 128/73 (91) 97 02/22/17 03:48 81 02/22/17 00:08 79 02/21/17 19:55 93 16 117/65 (82) 100 02/21/17 19:25 97.6 105 18 120/80 (93) 96 02/21/17 11:56 108 20 105/70 (82) 99 I/O 02/21/17 02/21/17 02/21/17 02/22/17 02/22/17 02/22/17 07:00 15:00 23:00 07:00 15:00 23:00 Intake Total 1480 ml 1000 ml 600 ml 600 ml Output Total 500 ml 400 ml Balance 980 ml 1000 ml 600 ml 200 ml Intake Oral 480 ml 600 ml IV Total 1000 ml 1000 ml 600 ml Output Urine Total 325 ml 400 ml Stool Total 175 ml # Voids 1 # Bowel Movements 1 Laboratory Laboratory Tests Test 02/22/17 06:24 Hemoglobin 8.1 Hematocrit 24.1 Physical Exam CHEST: Chest is clear to auscultation and percussion. CARDIAC: Regular rate and rhythm with no murmur gallop or rubs. ABDOMEN: Soft, nondistended, nontender; no hepatosplenomegaly; bowel sounds are present in all four quadrants. EXTREMITIES: No clubbing, cyanosis, or edema. SKIN: Normal; no rash; no jaundice. Assessment and Plan Assessment: (1) Diverticula of colon ICD Codes: K57.30 - Diverticulosis of large intestine without perforation or abscess without bleeding (2) GI (gastrointestinal bleed) ICD Codes: K92.2 - Gastrointestinal hemorrhage, unspecified Plan Pt appears clinically stable without overt bleeding ok for d/c with outpt f/u and plans for capsule endo..as well recommended fiber therapy , iron therapy po miralax therapy qod also Problem Qualifiers (1) GI (gastrointestinal bleed): Qualified Codes: K92.2 - Gastrointestinal hemorrhage, unspecified Devaughn Kamara MD Feb 22, 2017 11:07
[2017-02-22 11:39] VITALS: BP 105/64; PULSE 102; RESP 18; TEMP 98.1; O2SAT 100
--- NOTE | 2017-02-22 12:29 | HHI.DS ---
Discharge Summary Admission Date Feb 17, 2017 at 17:05 Discharge Date: Feb 22, 2017 Admitting Diagnosis symptomatic anemia, GI bleed (1) GI (gastrointestinal bleed) ICD Code: K92.2 - Gastrointestinal hemorrhage, unspecified (2) Diverticula of colon ICD Code: K57.30 - Diverticulosis of large intestine without perforation or abscess without bleeding (3) Symptomatic anemia ICD Code: D64.9 - Anemia, unspecified Procedures none Brief History - From Admission History from patient, ER PROGRAM EVALUATOR medication, and review of medical records. Patient reported that she was admitted recently to our hospital for GI bleed with bright red blood per rectum. Medical records reviewed. On February 14, 2017, patient underwent colonoscopy for this acute GI bleed. She also has had bleeding scan done at that time. She has had recent EGD as well. All studies did not see any active bleeding. Patient reports that her GI doctor Was suspecting diverticular bleed as she has had multiple diverticula . She was discharged home and was told to return back to hospital immediately if she has further episodes of bleeding. Patient reports that since discharge home on February 14, 2017, she was feeling somewhat lightheaded and dizziness. She kept drinking large amounts of Gatorade and water at home to keep herself hydrated. However she started feeling severe palpitations, feeling of heart pounding, dizziness, near syncopal episodes. She states she also continued to have bleeding every time she goes to make bowel movements. Only known that the blood is somewhat little bit darker than her previous blood. She also reports of shortness of breath on movement and getting up. She stated she felt like horse is kicking on her head for migraine headaches as well. While in emergency room, patient has had guaiac done which was positive. Her blood work also revealed hemoglobin of 6.8. Her baseline is 12-14. CBC/BMP: 02/22/17 0624 02/21/17 0615 Significant Findings Laboratory Tests Test 02/19/17 19:04 02/19/17 19:24 02/20/17 03:52 02/20/17 16:43 Red Blood Count 2.98 MIL/MM3 (4.00-5.30) 2.57 MIL/MM3 (4.00-5.30) Hemoglobin 8.6 GM/DL (11.6-15.3) 7.6 GM/DL (11.6-15.3) 8.7 GM/DL (11.6-15.3) Hematocrit 25.8 % (35.0-46.0) 22.4 % (35.0-46.0) 25.7 % (35.0-46.0) Neutrophils (%) (Auto) 72.5 % (16.0-70.0) Test 02/21/17 06:15 02/22/17 06:24 White Blood Count 3.6 TH/MM3 (4.0-11.0) Red Blood Count 2.74 MIL/MM3 (4.00-5.30) Hemoglobin 8.3 GM/DL (11.6-15.3) 8.1 GM/DL (11.6-15.3) Hematocrit 23.9 % (35.0-46.0) 24.1 % (35.0-46.0) Lymphocytes # (Auto) 0.8 TH/MM3 (1.0-4.8) Calcium Level 7.9 MG/DL (8.5-10.1) Potassium Level 3.0 MEQ/L (3.5-5.1) Chloride Level 108 MEQ/L (98-107) PE at Discharge GENERAL: Well-nourished, well-developed patient. EYES: EOMI. NECK: Supple, trachea midline. CARDIOVASCULAR: appears regular, no murmurs RESPIRATORY: Breath sounds equal bilaterally. No accessory muscle use. no wheezing GASTROINTESTINAL: Abdomen soft, non-tender, nondistended. MUSCULOSKELETAL: moves extremities. Hospital Course GI bleeding has slowly resolved. She received 5 units of PRBC over the last few days and her Hgb remains stable at 8.1 today. She has been cleared by GI for discharge, is tolerating PO, no active bleeding, wants to go home. Pt Condition on Discharge: Good Discharge Disposition: Discharge Home Discharge Time: <= 30 minutes Discharge Instructions DIET: Follow Instructions for: As Tolerated, No Restrictions Speech Therapy-Diet Recommends: Regular Activities you can perform: Regular-No Restrictions Deepak Samaniego MD Feb 22, 2017 12:29
== END 2017-02-22 13:39 | disposition home or self-care (01) | DRG 811 ==
LOC: NEPC 14:43 → NEDA 17:05 → HCIN 19:49
PROVIDERS: ADMIT Family Medicine; ATTEND Family Medicine
PROC: 30233N1 Transfusion of Nonautologous Red Blood Cells into Peripheral Vein, Percutaneous Approach (ICD-10-PCS; principal; 2017-02-17)
DX: D62 Acute posthemorrhagic anemia (principal); K57.31 Diverticulosis of large intestine without perforation or abscess with bleeding; E88.09 Other disorders of plasma-protein metabolism, not elsewhere classified; G44.209 Tension-type headache, unspecified, not intractable; K21.9 Gastro-esophageal reflux disease without esophagitis; R00.0 Tachycardia, unspecified
CPT/HCPCS: 36430; 78278; 80048; 80053; 82728; 83036; 83735; 84100; 84155; 84439; 84443; 85014; 85018; 85025; 85610; 85730; 86850; 86900; 86901; 86920; 93005; 96360; A9560; C9113; J1940; J7030; J7050; P9016

== ENCOUNTER → 2017-03-03 | Outpatient (CLI) | payer OTHER ==
[~2017-03-03] MED LIST changes: -PRED5TAB PO; -PROT40TA PO; +WALKER WHEELS/F1 MIS
[2017-03-03 09:29] LABS: HEMATOCRIT 30.4 % (35.0-46.0); HEMOGLOBIN 9.6 GM/DL (11.6-15.3)
== END ==
LOC: PLAB 08:23
PROVIDERS: ATTEND Family Medicine
DX: K92.2 Gastrointestinal hemorrhage, unspecified (principal)
CPT/HCPCS: 36415; 85014; 85018

== ENCOUNTER → 2017-03-12 | Outpatient (CLI) | payer OTHER ==
[2017-03-12 13:18] LABS: BASOPHIL % 1.1 % (0.0-2.0); EOSINOPHIL # 0.3 TH/MM3 (0-0.4); EOSINOPHIL % 6.7 % (0.0-4.0); HEMOGLOBIN 11.2 GM/DL (11.6-15.3); LYMPH % 30.1 % (9.0-44.0); LYMPHOCYTE # 1.1 TH/MM3 (1.0-4.8); MEAN CELL VOLUME 88.7 FL (80.0-100.0); MEAN CORPUSCULAR HEMOGLOBIN 29.3 PG (27.0-34.0); MEAN CORPUSCULAR HGB CONC 33.1 % (32.0-36.0); MEAN PLATELET VOLUME 9.2 FL (7.0-11.0); MONO % 7.9 % (0.0-8.0); MONOCYTE # 0.3 TH/MM3 (0-0.9); NEUT % 54.2 % (16.0-70.0); PLATELET COUNT 233 TH/MM3 (150-450); RED BLOOD COUNT 3.83 MIL/MM3 (4.00-5.30); RED CELL DISTRIBUTION WIDTH 15.8 % (11.6-17.2); WHITE BLOOD COUNT 3.8 TH/MM3 (4.0-11.0)
== END ==
LOC: PLAB 07:57
PROVIDERS: ATTEND Family Medicine
DX: K21.9 Gastro-esophageal reflux disease without esophagitis (principal); E78.00 Pure hypercholesterolemia, unspecified
CPT/HCPCS: 36415; 85025

== ENCOUNTER → 2017-05-28 | Outpatient (CLI) | payer OTHER ==
[2017-05-28 10:21] LABS: ALT (GPT) 37 U/L (10-53); AST (GOT) 25 U/L (15-37); BLOOD UREA NITROGEN 17 MG/DL (7-18); CALCIUM 8.8 MG/DL (8.5-10.1); CHLORIDE 107 MEQ/L (98-107); CREATININE 0.92 MG/DL (0.50-1.00); GLOMERULAR FILTRATION RATE 62 ML/MIN (>89); GLUCOSE,FASTING 95 MG/DL (74-99); SODIUM (NA) 141 MEQ/L (136-145)
[2017-05-28 10:30] LABS: ALKALINE PHOSPHATASE 94 U/L (45-117); CHOLESTEROL 229 MG/DL (120-200); CHOLESTEROL/ HDL RATIO 3.46 RATIO; HDL CHOLESTEROL 66.1 MG/DL (40.0-60.0); LDL CHOLESTEROL 145 MG/DL (0-99); TOTAL BILIRUBIN ADULT 0.3 MG/DL (0.2-1.0); TOTAL PROTEIN 7.5 GM/DL (6.4-8.2); TRIGLYCERIDES 91 MG/DL (42-150)
[2017-05-28 10:39] LABS: AUTOMATED NEUTROPHIL # 2.1 TH/MM3 (1.8-7.7); BASOPHIL % 1.1 % (0.0-2.0); EOSINOPHIL # 0.1 TH/MM3 (0-0.4); EOSINOPHIL % 3.6 % (0.0-4.0); HEMATOCRIT 45.6 % (35.0-46.0); HEMOGLOBIN 14.9 GM/DL (11.6-15.3); LYMPH % 37.3 % (9.0-44.0); LYMPHOCYTE # 1.5 TH/MM3 (1.0-4.8); MEAN CELL VOLUME 82.9 FL (80.0-100.0); MEAN CORPUSCULAR HEMOGLOBIN 27.1 PG (27.0-34.0); MEAN CORPUSCULAR HGB CONC 32.6 % (32.0-36.0); MEAN PLATELET VOLUME 10.6 FL (7.0-11.0); MONO % 7.6 % (0.0-8.0); MONOCYTE # 0.3 TH/MM3 (0-0.9); NEUT % 50.4 % (16.0-70.0); PLATELET COUNT 195 TH/MM3 (150-450); RED CELL DISTRIBUTION WIDTH 13.8 % (11.6-17.2); WHITE BLOOD COUNT 4.1 TH/MM3 (4.0-11.0)
[2017-05-28 16:48] LABS: HEMOGLOBIN A1C 5.6 % (4.3-6.0)
== END ==
LOC: PLAB 06:38
PROVIDERS: ATTEND Family Medicine
DX: K92.2 Gastrointestinal hemorrhage, unspecified (principal); G47.00 Insomnia, unspecified; K21.9 Gastro-esophageal reflux disease without esophagitis; Z86.69 Personal history of other diseases of the nervous system and sense organs
CPT/HCPCS: 36415; 80053; 80061; 83036; 84443; 85025